=== PATIENT | male | born 1945 | race Caucasian/White ===

== ENCOUNTER 2023-05-23 07:20 | Inpatient (IN) | payer OTHER, MEDICARE, SELFPAY ==
[2023-05-23] VITALS (10 sets, daily range): BP systolic 113–157; BP diastolic 57–102; PULSE 76–99; RESP 16–22; TEMP 36.3–38.4; O2SAT 94–99; BMI 27.5; BMI 25.9
--- NOTE | 2023-05-23 07:43 | EKG12_ITS ---
Test Reason : LEG PAIN Blood Pressure : / mmHG Vent. Rate : 098 BPM Atrial Rate : 098 BPM P-R Int : 190 ms QRS Dur : 122 ms QT Int : 356 ms P-R-T Axes : 047 -54 099 degrees QTc Int : 454 ms Normal sinus rhythm Left anterior fascicular block Left ventricular hypertrophy with QRS widening and repolarization abnormality Abnormal ECG Confirmed by GIUSEPPE MORGAN, MYRANDA ([id number]), online content editor DORCAS SALINAS ([id number]) on 05/24/2023 9:56:05 AM Referred By: JOHN Confirmed By:MYRANDA CHIN MD
[2023-05-23] MEDS: 0.9% Normal Saline 1,000 ML 150 ML IV (08:11)
[2023-05-23 08:25] LABS: Absolute Neutrophil Count 13.2 X10^3/uL (2.0-7.7); Basophil# 0.03 X10^3/uL; Basophil% 0.2 % (0-1); Hematocrit 37.5 % (40-54); Hemoglobin 13.2 g/dL (13.0-16.5); Mean Corp Hgb Conc 35.2 g/dL (32-36); Mean Corpuscular Hgb 29.3 pg (27.0-32.0); Mean Corpuscular Volume 83.3 fL (80-94); Mean Platelet Vol. 11.1 fl (6.2-12.0); Monocyte% 4.7 % (0-10); NRBC Flagged by Analyzer 0 % (0-5); Neutrophil # 13.22 X10^3/uL (2.7-7.7); Neutrophil % 88.7 % (47-70); Platelet Count 145 K/mm3 (150-450); RBC Distribution Width CV 13.5 % (11.6-14.6); RBC Distribution Width SD 40.9 fl (35.1-43.9); White Blood Count 14.9 K/mm3 (4.4-11.0)
[2023-05-23 08:31] LABS: International Normalized Ratio 1.4; Prothrombin Time (Protime)PT. 16.9 SECONDS (11.7-14.9)
[2023-05-23 08:32] LABS: Partial Thromboplast Time 37.9 Seconds (24.1-36.2)
[2023-05-23 08:39] LABS: ALB/GLOB Ratio 0.9 RATIO (0.9-2.4); AST(SGOT) 21 U/L (15-37); Alanine Aminotransfer ALT/SGPT 14 U/L (16-61); Albumin, Serum 3.2 g/dL (3.2-5.0); Alkaline Phosphatase 83 U/L (45-117); Anion Gap 8 (5-15); BUN 15 mg/dL (7-18); BUN/Creat Ratio 13.5 RATIO (10-20); Calcium,Total 9.3 mg/dL (8.5-10.1); Chloride 100 mmol/L (98-107); Creatinine, Serum 1.11 mg/dL (0.70-1.30); EST Glomerular Filtration Rate 68 mL/min (>60); Est Glom Filt Rate - Afr Amer 83 mL/min (>60); Estimated Creatinine Clearance 73.19 ml/min; Globulin 3.7 g/dL (2.2-4.2); Glucose 114 mg/dL (74-106); Potassium 3.2 mmol/L (3.5-5.1); Protein, Total 6.9 g/dL (6.4-8.2); Sodium Level 135 mmol/L (136-145)
[2023-05-23 08:45] LABS: Lactic Acid 1.4 mmol/L (0.4-1.9)
--- NOTE | 2023-05-23 09:27 | ED.RN ---
Patient cleaned up from large incontinent episode of stool and urine. Adult diaper saturated and old urine and dried stool cleaned up. Patient states he maintains his own care in regard to adult diapers and incontinence. Patient had large, liquid incontinent stool while being changed. Patient cleaned and new adult diaper applied, purewick applied. Urine collected and sent to lab
[2023-05-23 09:28] LABS: Mucous, Urine 0 SEEN /hpf (<or=2+); Squamous Epithelial Cells - UA 0 SEEN /hpf (0-5)
--- NOTE | 2023-05-23 09:36 | EDS_ITS ---
HPI History of Present Illness Chief Complaint: Weakness Detail of Chief Complaint: Generalized weakness, cannot stand and walk Informant: patient Onset/Context/Timing Onset: - (Unknown) Context: - (Unknown since patient is not a good informant) Timing: Continuous (Presumed) Quality: Patient has cellulitis of the left foot, toes and leg. Location: Lower extremity Current Severity: Moderate Maximum Severity: Moderate Worsened by: Suspect due to tinea pedis Relieved by: Nothing Associated Symptoms Associated Symptoms: Patient is a 77-year-old male who is not a good informant. Narrative Narrative: Patient is a 77-year-old male who is a poor informant. He was unaware that he was sent in because of concern for infection of his left lower extremity. He informed that he was sent in because he is weak and he cannot stand and walk. He does not know when his leg first was read. He was unaware that the leg is swollen as well. He denies fever or chills. He denies headache. Denies visual, ocular auditory symptoms. He denies shortness of breath or difficulty breathing. He denies abdominal pain, vomiting or diarrhea. He illogic symptoms. As noted he is not a good informant so uncertain how reliable he is Prior similar symptoms: No Recent Illness/Hospitalization: No PFSH PFS Medical History Diabetes mellitus HTN (hypertension) Home Medications cholecalciferol (vitamin D3) 25 mcg (1,000 unit) tablet 25 mcg PO DAILY SUPPLEMENT 05/23/23 [History Last Taken 05/23/23] lisinopril 40 mg tablet 20 mg PO DAILY BLOOD PRESSURE 05/23/23 [History Last Taken 05/23/23] metformin 500 mg tablet 1,000 mg PO DAILY DIABETES 05/23/23 [History Last Taken 05/23/23] psyllium husk 0.52 gram capsule (Daily Fiber) 0.52 g PO DAILY PRN CONSTIPATION 05/23/23 [History Last Taken Unknown] riboflavin (vitamin B2) 100 mg tablet (Vitamin B-2) 100 mg PO DAILY SUPPLEMENT 05/23/23 [History Last Taken 05/23/23] Allergy/AdvReac Type Severity Reaction Status Date / Time No Known Allergies Allergy Verified 05/23/23 07:23 Surgical History no surgical history Social History Smoking Status: Former smoker ROS ROS ED Review of Systems ROS Unobtainable: due to mental status Constitutional Constitutional ED: Denies chills, fever(s), sweats or weight loss Eyes Eyes: Denies blurry vision, change in vision or diplopia ENT ENT ED: Denies ear pain, rhinorrhea or sore throat Cardiovascular Cardiovascular: Denies chest pain or palpitations Respiratory/Chest Respiratory/Chest: Denies cough, dyspnea or dyspnea on exertion Gastrointestinal Gastrointestinal: Denies abdominal pain, diarrhea or vomiting Genitourinary Genitourinary ED: Denies dysuria, hematuria or urinary frequency Musculoskeletal Musculoskeletal: Denies back pain or neck pain Integumentary Denies rash Neurologic Neurologic: Reports weakness Hematologic/Lymphatic Hematologic/Lymphatic: Reports systems reviewed and no addt'l complaints, except as documented EXAM Physical Exam Const Vital Signs: 05/23/23 07:21 05/23/23 07:21 05/23/23 07:55 Temperature 97.3 F L Temperature Source Temporal Pulse Rate 88 Respiratory Rate 18 Blood Pressure 149/63 H Blood Pressure Mean 91 Pulse Ox 94 Oxygen Delivery Method Room Air 05/23/23 09:25 05/23/23 10:54 05/23/23 11:22 Temperature 98 F Temperature Source Oral Pulse Rate 88 96 76 Respiratory Rate 18 22 H 16 Blood Pressure 113/102 H 147/57 H 156/66 H Blood Pressure Mean 105 87 96 Pulse Ox 97 99 Oxygen Delivery Method Room Air Room Air Room Air Positive well nourished and well developed General Appearance ED: well developed and NAD; Negative for cyanotic or diap horetic HEENT Reports dry mucous membranes HEENT Narrative: It is atraumatic normocephalic. Ears are normal. TMs are partially visualized and normal. Nares patent. Posterior pharynx out erythema or exudate Mouth ED: Yes dry mucous membranes Mouth: dry mucous membranes Eyes PERRL and EOMs intact bilaterally General Eye ED: Negative for pale conjunctiva or scleral icterus Neck no lymphadenopathy, supple and no JVD Chest Wall inspection of chest normal and palpation of chest normal Resp normal respiratory effort and clear to auscultation bilaterally Cardio regular rate, regular rhythm, S1 normal heart sound, S2 normal heart sound and no murmurs GI normal to inspection, nondistended, normoactive bowel sounds, non-tender, non- distended and no masses; Negative for hepatosplenomegaly Back/Spine no CVA tenderness Extremity Negative for normal to inspection Extremity Narrative: Patient has edema of both the right and left lower extremity. Left is worse. Patient has evidence of cellulitis involving the toes, foot and leg on the left side. He has tenderness in the popliteal fossa. There is no palpable lymph nodes. There is no lymphangitis. Patient does have evidence of tinea pedis left foot. Suspect this is the nidus for his infection. Neuro No oriented x3, CN's II-XII intact bilaterally and no sensory deficits noted Neuro Narrative: Patient is awake but not alert. Sensorium / Orientation: Negative for alert Psych mental status grossly normal Skin Skin Narrative: Cellulitis left lower extremity. MDM MDM MDM Narrative Medical decision making narrative: Patient with altered mental status concerned he has encephalopathy due to infectious cause. Sepsis work-up was initiated. He was treated with Unasyn and vancomycin. History & Record Review Additional record(s) reviewed:: No prior records Lab Data Attestation: I reviewed the patient's lab results. Lab results narrative: White count is elevated with shift. The no bandemia. PT and PTT are slightly elevated. Electrolyte panel is remarkable for potassium 3.2. CO2 anion gap is normal. Glucose is slight elevated 114. Liver enzymes are unremarkable. Total bili is slight elevated 1.4. Labs: Laboratory Results - last 24 hr 05/23/23 05/23/23 07:05 09:17 WBC 14.9 H RBC 4.50 L Hgb 13.2 Hct 37.5 L MCV 83.3 MCH 29.3 MCHC 35.2 RDW Std Deviation 40.9 RDW Coeff of Domo 13.5 Plt Count 145 L MPV 11.1 Immature Gran % (Auto) 0.400 Neut % (Auto) 88.7 H Lymph % (Auto) 6.0 L [place] % (Auto) 4.7 Eos % (Auto) 0.0 Baso % (Auto) 0.2 Absolute Neuts (auto) 13.2 H Absolute Lymphs (auto) 0.90 Nucleated RBC % 0 PT 16.9 H INR 1.4 APTT 37.9 H Sodium 135 L Potassium 3.2 L Chloride 100 Carbon Dioxide 27.0 Anion Gap 8 BUN 15 Creatinine 1.11 Estim Creat Clear Calc 73.19 Est GFR (MDRD) Af Amer 83 Est GFR (MDRD) Non-Af 68 BUN/Creatinine Ratio 13.5 Glucose 114 H Lactic Acid 1.4 Calcium 9.3 Total Bilirubin 1.40 H AST 21 ALT 14 L Alkaline Phosphatase 83 Total Protein 6.9 Albumin 3.2 Globulin 3.7 Albumin/Globulin Ratio 0.9 Urine Color Yellow Urine Clarity Sl. Cloudy Urine pH 8.0 Ur Specific [place] 1.015 Urine Protein 100 H Urine Glucose (UA) Normal Urine Ketones 150 A* Urine Occult Blood 150 H Urine Nitrite Positive H Urine Bilirubin Negative Urine Urobilinogen Normal Ur Leukocyte Esterase 500 H Urine RBC 10-25 SEEN Urine WBC 25-50 SEEN Ur Squamous Epith Cells 0 SEEN Urine Bacteria 2+ Urine Mucus 0 SEEN Rhythm Strip Rhythm Strip: Sinus Rhythm Rate: 96 Ectopy: None EKG Initial EKG: Attestation: I personally reviewed and interpreted this EKG as follows: Interpretation: Sinus Rhythm (Rate is 98. PA interval is 198 ms. QRS duration is prolonged at 122 ms and there is evidence of a left intrafascicular block. QT duration is 356 ms. [place] is normal. There is evidence of LVH by voltage criteria with repolarization changes.) Discharge Plan Dx/Rx/DC Orders Clinical Impression: Cellulitis of left lower extremity, Disoriented to time, Encephalopathy due to infection Disposition Disposition: Acute Care Hospital [facility] Discharge Date/Time: 05/23/23 11:25
[2023-05-23 09:37] LABS: Color, Urine Yellow (Yellow); Glucose, Dipstick Normal (Normal); Leukocyte Esterase-Dipstick 500 /ul (Negative); Nitrite-Dipstick Positive (Negative); Occult Blood-Urine 150 /ul (Negative); Protein-Dipstick 100 mg/dl (Negative); Specific Gravity, Urine 1.015 (1.002-1.030); Urine Bilirubin Dipstick Negative (Negative); Urine Clarity Sl. Cloudy (Clear); Urine Urobilinogen Normal (Normal)
[2023-05-23 09:38] LABS: Ketone-Dipstick 150 mg/dl (Negative)
[2023-05-23 09:47] LABS: Bacteria 2+ /hpf (None Seen); Red Blood Cells-Urine 10-25 SEEN /hpf (0-5); White Blood Cells 25-50 SEEN /hpf (0-5)
--- NOTE | 2023-05-23 10:55 | ED.RN ---
Patient sleeping, aware of admission. Awaiting room assignment. Lights dimmed for comfort.
--- NOTE | 2023-05-23 11:00 | NURSING ---
ER notified Dr. Stone on unit, states will admit to [facility]. ut to send patient.
--- NOTE | 2023-05-23 12:11 | NURSING ---
pt states that he lives in [place] with his son- Toy. pt states that he was up here visiting friends and the friend called the squad because he couldn't get up out of the chair. pt states he does NOT want anyone notified that he is here. Pt states he seeks treatment at the [facility] in [place]
--- NOTE | 2023-05-23 12:54 | PCM.HP.STD ---
HPI - General General Date of Admission: 05/23/23 Date of Service: 05/23/23 Chief Complaint: weakness. HPI Narrative PAULINO VITALE, is a 77 M who presents. Pt is here from [place], [place] for a leather show. He has been staying at friends and has been progressively getting weaker, requiring assistance getting out of bed. They were concerned and sent the patient to the ED. In the ED, he was noted to have LLE cellulitis. He received vancomycin and Unasyn. He denies h/o cellulitis in the past. Given his cellulitis and debility the hospitalist service was contacted for admission. [facility] Medical History Diabetes mellitus HTN (hypertension) Home Medications cholecalciferol (vitamin D3) 25 mcg (1,000 unit) tablet 25 mcg PO DAILY SUPPLEMENT 05/23/23 [History Last Taken 05/23/23] lisinopril 40 mg tablet 20 mg PO DAILY BLOOD PRESSURE 05/23/23 [History Last Taken 05/23/23] metformin 500 mg tablet 1,000 mg PO DAILY DIABETES 05/23/23 [History Last Taken 05/23/23] psyllium husk 0.52 gram capsule (Daily Fiber) 0.52 g PO DAILY PRN CONSTIPATION 05/23/23 [History Last Taken Unknown] riboflavin (vitamin B2) 100 mg tablet (Vitamin B-2) 100 mg PO DAILY SUPPLEMENT 05/23/23 [History Last Taken 05/23/23] Allergy/AdvReac Type Severity Reaction Status Date / Time No Known Allergies Allergy Verified 05/23/23 07:23 Family History no significant family his no significant family history Surgical History no surgical history Social History Smoking Status: Former smoker Vital Signs Vital Signs Vital Signs: 05/23/23 07:21 05/23/23 07:21 05/23/23 07:55 Temperature 36.3 C L Temperature Source Temporal Pulse Rate 88 Respiratory Rate 18 Blood Pressure 149/63 H Blood Pressure Mean 91 Pulse Ox 94 Oxygen Delivery Method Room Air 05/23/23 09:25 05/23/23 10:54 05/23/23 11:22 Temperature 36.6 C Temperature Source Oral Pulse Rate 88 96 76 Respiratory Rate 18 22 H 16 Blood Pressure 113/102 H 147/57 H 156/66 H Blood Pressure Mean 105 87 96 Pulse Ox 97 99 Oxygen Delivery Method Room Air Room Air Room Air 05/23/23 12:09 Temperature 37.6 C H Temperature Source Oral Pulse Rate 92 Respiratory Rate 18 Blood Pressure 155/71 H Blood Pressure Mean 99 Pulse Ox 96 Oxygen Delivery Method Room Air Weight Weight: 101.605 kg Body Mass Index (BMI) 25.9 Physical Exam Const alert and no apparent distress HEENT normocephalic and head/scalp atraumatic Resp normal respiratory effort, no retractions, no use of accessory muscles and clear to auscultation bilaterally Cardio regular rate, regular rhythm, S1 normal heart sound and S2 normal heart sound GI normal to inspection, nondistended, normoactive bowel sounds, soft to palpation, non-tender and non-distended Extremity Extremity Narrative: edema bilateral LE. tinea pedis. Skin Skin Narrative: erythema of left foot extending proximally up leg. Psych affect normal Results Lab / Micro Data 05/23/23 07:05 05/23/23 07:05 Labs: Laboratory Results - last 24 hr 05/23/23 07:05: WBC 14.9 H, RBC 4.50 L, Hgb 13.2, Hct 37.5 L, MCV 83.3, MCH 29.3, MCHC 35.2, RDW Std Deviation 40.9, RDW Coeff of Domo 13.5, Plt Count 145 L, MPV 11.1, Immature Gran % (Auto) 0.400, Neut % (Auto) 88.7 H, Lymph % (Auto) 6.0 L, [place] % (Auto) 4.7, Eos % (Auto) 0.0, Baso % (Auto) 0.2, Absolute Neuts (auto) 13.2 H, Absolute Lymphs (auto) 0.90, Nucleated RBC % 0, PT 16.9 H, INR 1.4, APTT 37.9 H, Sodium 135 L, Potassium 3.2 L, Chloride 100, Carbon Dioxide 27.0, Anion Gap 8, BUN 15, Creatinine 1.11, Estim Creat Clear Calc 73.19, Est GFR (MDRD) Af Amer 83, Est GFR (MDRD) Non-Af 68, BUN/Creatinine Ratio 13.5, Glucose 114 H, Lactic Acid 1.4, Calcium 9.3, Total Bilirubin 1.40 H, AST 21, ALT 14 L, Alkaline Phosphatase 83, Total Protein 6.9, Albumin 3.2, Globulin 3.7, Albumin/Globulin Ratio 0.9 05/23/23 09:17: Urine Color Yellow, Urine Clarity Sl. Cloudy, Urine pH 8.0, Ur Specific [place] 1.015, Urine Protein 100 H, Urine Glucose (UA) Normal, Urine Ketones 150 A*, Urine Occult Blood 150 H, Urine Nitrite Positive H, Urine Bilirubin Negative, Urine Urobilinogen Normal, Ur Leukocyte Esterase 500 H, Urine RBC 10-25 SEEN, Urine WBC 25-50 SEEN, Ur Squamous Epith Cells 0 SEEN, Urine Bacteria 2+, Urine Mucus 0 SEEN Rhythm Strip Rhythm Strip: Sinus Rhythm Rate: 96 Ectopy: None Assessment & Plan Assessment/Plan (1) Cellulitis of left lower extremity: PLAN: likely 2/2 tinea pedis. received vanc and Unasyn in ED continue vancomycin (2) Debility: PLAN: PT OT eval and treat (3) Tinea pedis: QUALIFIERS: Laterality: bilateral Qualified Code(s): B35.3 - Tinea pedis PLAN: clotrimazole topical PLAN: Plan chronic conditions: DM2: continue metformin. add SSI. check A1c HTN: continue lisinopril VTE prophylaxis: SQ enoxaparin. Charges/Coding Visit Charges Inpatient E&M: 52603 Init Hosp L3
--- NOTE | 2023-05-23 13:25 | PCM.RX.CS ---
Consult Antibiotic Management Pharmacy has been consulted to manage selected antiobiotic: Vancomycin Type of Intervention Type of Consult: New start Suspected Infection Suspected Infection: Skin/Soft tissue Prior Doses of Antibiotics Prior Doses of Antibiotics Received/Current Regimen: Currently receiving 2000mg iv x 1 as loading dose. Labs Labs: Sodium 135 mmol/L (136-145) L 05/23/23 07:05 Potassium 3.2 mmol/L (3.5-5.1) L 05/23/23 07:05 Chloride 100 mmol/L (98-107) 05/23/23 07:05 Carbon Dioxide 27.0 mmol/L (21.0-32.0) 05/23/23 07:05 Anion Gap 8 (5-15) 05/23/23 07:05 BUN 15 mg/dL (7-18) 05/23/23 07:05 Creatinine 1.11 mg/dL (0.70-1.30) 05/23/23 07:05 Est GFR (MDRD) Af Amer 83 mL/min (>60) 05/23/23 07:05 Est GFR (MDRD) Non-Af 68 mL/min (>60) 05/23/23 07:05 BUN/Creatinine Ratio 13.5 RATIO (10-20) 05/23/23 07:05 Glucose 114 mg/dL (74-106) H 05/23/23 07:05 Dosing Weight Weight used for dosin.6 kg Estimated Creatinine Clearance Estimated Creatinine Clearance: 73 ml/min Goal Trough Goal Trough: 10-15 mcg/mL Pharmacy Plan for Drug Dosing Pharmacy Plan for Drug Dosing: Will begin 1000mg iv q12h starting 12hrs post 2000mg dose. Trough level ordered for before 4th dose per protocol. Pharmacy Service will continue to monitor and adjust dosing as required. Follow-Up Labs Follow-Up Labs: Trough: Vancomycin (8.4.23 @2230 before 2300 dose)
[2023-05-23] MEDS: Acetaminophen 500 MG Tablet 1000 MG PO ×2 (13:43→23:56)
[2023-05-23 18:51] LABS: Bedside Glucose 103 mg/dL (74-106)
[2023-05-23] MEDS: Vancomycin IV 1,000 MG/200 ML BAG 200 MG IV (23:10)
[2023-05-23] MEDS: Menthol/Lanolin/Calamine/Znox 113 GM Tube 1 APPLIC TOPICAL (23:19)
[2023-05-23] MEDS: Clotrimazole 1 APPLIC Tube TOPICAL (23:57)
[2023-05-24] VITALS (7 sets, daily range): BP systolic 127–160; BP diastolic 64–78; PULSE 63–99; RESP 16–18; TEMP 36.6–38.3; O2SAT 96–99
[2023-05-24] MEDS: Acetaminophen 500 MG Tablet 1000 MG PO ×3 (05:40→22:20)
[2023-05-24 06:15] LABS: Bedside Glucose 102 mg/dL (74-106)
[2023-05-24 06:18] LABS: Absolute Lymphocyte Count 0.68 X10^3/uL (0.83-4.51); Absolute Neutrophil Count 11.8 X10^3/uL (2.0-7.7); Basophil# 0.02 X10^3/uL; Basophil% 0.2 % (0-1); Eosinophil# 0.01 X10^3/uL; Eosinophils% 0.1 % (0-5); Hematocrit 37.9 % (40-54); Hemoglobin 12.8 g/dL (13.0-16.5); Lymphocyte # 0.68 X10^3/ul (0.83-4.51); Lymphocyte % 5.1 % (19-41); Mean Corp Hgb Conc 33.8 g/dL (32-36); Mean Corpuscular Hgb 28.4 pg (27.0-32.0); Mean Corpuscular Volume 84.2 fL (80-94); Monocyte# 0.59 X10^3/uL; Monocyte% 4.4 % (0-10); NRBC Flagged by Analyzer 0 % (0-5); Neutrophil # 11.81 X10^3/uL (2.7-7.7); Neutrophil % 89.1 % (47-70); Platelet Count 118 K/mm3 (150-450); RBC Distribution Width CV 13.2 % (11.6-14.6); RBC Distribution Width SD 40.6 fl (35.1-43.9); White Blood Count 13.3 K/mm3 (4.4-11.0)
[2023-05-24 07:23] LABS: ALB/GLOB Ratio 0.7 RATIO (0.9-2.4); AST(SGOT) 16 U/L (15-37); Alanine Aminotransfer ALT/SGPT 15 U/L (16-61); Albumin, Serum 2.5 g/dL (3.2-5.0); Alkaline Phosphatase 81 U/L (45-117); Anion Gap 5 (5-15); BUN 14 mg/dL (7-18); BUN/Creat Ratio 16.4 RATIO (10-20); Calcium,Total 8.8 mg/dL (8.5-10.1); Chloride 103 mmol/L (98-107); Creatinine, Serum 0.85 mg/dL (0.70-1.30); EST Glomerular Filtration Rate 93 mL/min (>60); Est Glom Filt Rate - Afr Amer 112 mL/min (>60); Estimated Creatinine Clearance 95.58 ml/min; Globulin 3.7 g/dL (2.2-4.2); Glucose 103 mg/dL (74-106); Potassium 3.4 mmol/L (3.5-5.1); Protein, Total 6.2 g/dL (6.4-8.2); Sodium Level 135 mmol/L (136-145); Thyroid Stim Hormone (TSH) 0.83 uIU/mL (0.358-3.74)
--- NOTE | 2023-05-24 07:38 | PN.HOSP_ITS ---
Reason for Visit Reason for Visit: Diagnoses Tinea pedis (05/23/23) Cellulitis of left lower limb (05/23/23) Other malaise (05/23/23) Subjective Subjective Left leg feeling better. Objective Data Objective Data Vital Signs: Vital Signs Temp Pulse Resp BP Pulse Ox O2 Del Method 37.5 C H 80 18 148/73 H 97 Room Air 05/24/23 05:34 05/24/23 05:34 05/24/23 05:34 05/24/23 05:34 05/24/23 05:34 05/24/23 05:34 Oxygen Delivery Method Room Air Weight: 101.605 kg Body Mass Index (BMI) 25.9 Intake & Output: Intake and Output for Last 24 Hours 05/22/23 05/23/23 05/24/23 23:59 23:59 23:59 Intake Total 1344.75 / 1344.75 200 / 200 Output Total 600 / 600 450 / 450 Balance 744.75 / 744.75 -250 / -250 Lab / Micro Data 05/24/23 05:25 05/24/23 05:25 Labs: Laboratory Results - last 24 hr 05/23/23 07:05: WBC 14.9 H, RBC 4.50 L, Hgb 13.2, Hct 37.5 L, MCV 83.3, MCH 29.3, MCHC 35.2, RDW Std Deviation 40.9, RDW Coeff of Domo 13.5, Plt Count 145 L, MPV 11.1, Immature Gran % (Auto) 0.400, Neut % (Auto) 88.7 H, Lymph % (Auto) 6.0 L, [place] % (Auto) 4.7, Eos % (Auto) 0.0, Baso % (Auto) 0.2, Absolute Neuts (auto) 13.2 H, Absolute Lymphs (auto) 0.90, Nucleated RBC % 0, PT 16.9 H, INR 1.4, APTT 37.9 H, Sodium 135 L, Potassium 3.2 L, Chloride 100, Carbon Dioxide 27.0, Anion Gap 8, BUN 15, Creatinine 1.11, Estim Creat Clear Calc 73.19, Est GFR (MDRD) Af Amer 83, Est GFR (MDRD) Non-Af 68, BUN/Creatinine Ratio 13.5, Glucose 114 H, Lactic Acid 1.4, Calcium 9.3, Total Bilirubin 1.40 H, AST 21, ALT 14 L, Alkaline Phosphatase 83, Total Protein 6.9, Albumin 3.2, Globulin 3.7, Albumin/Globulin Ratio 0.9 05/23/23 09:17: Urine Color Yellow, Urine Clarity Sl. Cloudy, Urine pH 8.0, Ur Specific [place] 1.015, Urine Protein 100 H, Urine Glucose (UA) Normal, Urine Ketones 150 A*, Urine Occult Blood 150 H, Urine Nitrite Positive H, Urine Bilirubin Negative, Urine Urobilinogen Normal, Ur Leukocyte Esterase 500 H, Urine RBC 10-25 SEEN, Urine WBC 25-50 SEEN, Ur Squamous Epith Cells 0 SEEN, Urine Bacteria 2+, Urine Mucus 0 SEEN 05/23/23 16:11: POC Glucose 103 05/23/23 23:09: POC Glucose 102 05/24/23 05:25: WBC 13.3 H, RBC 4.50 L, Hgb 12.8 L, Hct 37.9 L, MCV 84.2, MCH 2 8.4, MCHC 33.8, RDW Std Deviation 40.6, RDW Coeff of Domo 13.2, Plt Count 118 L, MPV 11.0, Immature Gran % (Auto) 1.100 H, Neut % (Auto) 89.1 H, Lymph % (Auto) 5.1 L, [place] % (Auto) 4.4, Eos % (Auto) 0.1, Baso % (Auto) 0.2, Absolute Neuts (auto) 11.8 H, Absolute Lymphs (auto) 0.68 L, Nucleated RBC % 0, Sodium 135 L, Potassium 3.4 L, Chloride 103, Carbon Dioxide 27.0, Anion Gap 5, BUN 14, Creatinine 0.85, Estim Creat Clear Calc 95.58, Est GFR (MDRD) Af Amer 112, Est GFR (MDRD) Non-Af 93, BUN/Creatinine Ratio 16.4, Glucose 103, Calcium 8.8, Total Bilirubin 1.10 H, AST 16, ALT 15 L, Alkaline Phosphatase 81, Total Protein 6.2 L , Albumin 2.5 L, Globulin 3.7, Albumin/Globulin Ratio 0.7 L, TSH 0.83 Rhythm Strip Rhythm Strip: Sinus Rhythm Rate: 96 Ectopy: None Physical Exam Const alert and no apparent distress HEENT head/scalp atraumatic Resp normal respiratory effort, no retractions, no use of accessory muscles and clear to auscultation bilaterally Cardio regular rate, regular rhythm, S1 normal heart sound and S2 normal heart sound Extremity Extremity Narrative: still w erythema on LLE, but less intense today. Assessment & Plan Assessment/Plan (1) Cellulitis of left lower extremity: PLAN: improving likely 2/2 tinea pedis. received vanc and Unasyn in ED continue vancomycin (2) Debility: PLAN: PT OT eval and treat (3) Tinea pedis: QUALIFIERS: Laterality: bilateral Qualified Code(s): B35.3 - Tinea pedis PLAN: clotrimazole topical PLAN: Plan chronic conditions: * DM2: controlled. continue metformin. add SSI. A1c 6.1 * HTN: continue lisinopril VTE prophylaxis: SQ enoxaparin. Charges/Coding Visit Charges Inpatient E&M: 29920 Subs Hosp L2
[2023-05-24 08:42] LABS: Hemoglobin A1c 6.1 % (3.8-5.6)
[2023-05-24] MEDS: Cholecalciferol (VIT D3) 25 MCG TABLET (1,000 UNITS) PO (11:07)
[2023-05-24] MEDS: Lisinopril 20 MG Tablet PO (11:07)
[2023-05-24] MEDS: Enoxaparin 40 MG/0.4 ML Syringe SC (11:07)
[2023-05-24] MEDS: metFORMIN HCl 1,000 MG Tablet 1000 MG PO (11:07)
[2023-05-24] MEDS: Clotrimazole 1 APPLIC Tube TOPICAL (11:08)
[2023-05-24] MEDS: Menthol/Lanolin/Calamine/Znox 113 GM Tube 1 APPLIC TOPICAL ×2 (11:09→22:21)
[2023-05-24] MEDS: Vancomycin IV 1,000 MG/200 ML BAG 200 MG IV ×2 (11:09→23:08)
--- NOTE | 2023-05-24 11:52 | CASEMGMT ---
TERRENCE STEVE Assessment: Face to Face with pt for initial transition planning/care coordination assessment. RN EVI introduced self and role at [facility], pt voices understanding and consents to assessment. Pt is A/O x2, pt thought the year was 1973. Care providers, pharmacy, and demographics verified/updated. Admitting Dx: cellulitis LLE, disorientation PCP:CHERYL in [facility] Specialists:Pt denies Preferred Pharmacy: [facility] Retail Insurance: [place], [facility] Prescription Benefit: yes through the [place] LNOK: Toby Thomason, son- Pt declines for TERRENCE STEVE to call him and will not provide his phone number. He states that he will tell him all the information once he is home. Living Arrangements: Pt lives with son in a single story home with 1 step to enter. Pt reports he is I in ADL's and denies concerns at home. Transportation: Pt drives self and denies concerns with transportation. Pt reports he drove himself to the [employer] in [facility] and plans to drive himself back home. DME/HHC/SNF: Pt has a built in seat in the shower and a cane. Pt states he has a BGM but does not use. Pt denies hx of HHC or SNF stays. Pt states no concerns with going home at time of dc. Discussed that therapy will evaluate him. Pt states he can drive home regardless. Pt states no further concerns/needs. CM to follow. Advised pt to ask CM if any further question/concerns/needs arise, voices understanding. Pt Goal: Home Plan: TBD, pending therapy
[2023-05-24 12:08] LABS: Bedside Glucose 106 mg/dL (74-106)
[2023-05-24 12:15] LABS: Bedside Glucose 103 mg/dL (74-106)
[2023-05-24] MEDS: Potassium Chloride Oral Tablet 20 MEQ 40 MEQ PO (14:02)
--- NOTE | 2023-05-24 15:32 | CASEMGMT ---
Addendum entered by Arline Turpin 05/24/23 15:42: Did discuss with Charlotte guerrero pt is requiring. Addendum entered by Arline Turpin 05/24/23 15:39: Charlotte [facility] called back and she states pt is able to go to their house upon dc. She states to call them at dc and they will have someone come pick him up. Pt aware of this as well. Original Note: TERRENCE STEVE into pt room, pt states he plans to stay with Jillian and Charlotte Medrano for one day then driving back home. He did give this RN CM the phone number for the [facility]. [phone]. He states this RN CM may call them. They do not drive but he states they will find someone to pick him up. Asked pt if he could stay with them until he felt stronger. Pt states he only needs to have strength in his right foot to get home. Pt states he does not want any therapy once home. He is aware to follow up with his PCP should he change his mind. TC to the [facility], left voicemail requesting returned call to confirm pt plan.
[2023-05-24 16:28] LABS: Bedside Glucose 145 mg/dL (74-106)
[2023-05-24] MEDS: 0.9% Saline Lock 10 ML Syringe IV (22:24)
[2023-05-24 22:38] LABS: Vancomycin, Trough Level 10.2 ug/mL (5.0-15.0)
--- NOTE | 2023-05-24 23:00 | PCM.RX.CS ---
Consult Antibiotic Management Pharmacy has been consulted to manage selected antiobiotic: Vancomycin Type of Intervention Type of Consult: Follow-up Suspected Infection Suspected Infection: Skin/Soft tissue Labs Labs: Sodium 135 mmol/L (136-145) L 05/24/23 05:25 Potassium 3.4 mmol/L (3.5-5.1) L 05/24/23 05:25 Chloride 103 mmol/L (98-107) 05/24/23 05:25 Carbon Dioxide 27.0 mmol/L (21.0-32.0) 05/24/23 05:25 Anion Gap 5 (5-15) 05/24/23 05:25 BUN 14 mg/dL (7-18) 05/24/23 05:25 Creatinine 0.85 mg/dL (0.70-1.30) 05/24/23 05:25 Est GFR (MDRD) Af Amer 112 mL/min (>60) 05/24/23 05:25 Est GFR (MDRD) Non-Af 93 mL/min (>60) 05/24/23 05:25 BUN/Creatinine Ratio 16.4 RATIO (10-20) 05/24/23 05:25 Glucose 103 mg/dL (74-106) 05/24/23 05:25 Vancomycin Trough 10.2 ug/mL (5.0-15.0) 05/24/23 22:13 Dosing Weight Weight used for dosin.6 kg Estimated Creatinine Clearance Estimated Creatinine Clearance: 96 Goal Trough Goal Trough: 10-15 mcg/mL Pharmacy Plan for Drug Dosing Pharmacy Plan for Drug Dosing: Vancomycin trough level of 10.2 was within the target range of 10-15. Will continue dosing at 1000mg q12h, and re-draw a trough in 2 days. Pharmacy Service will continue to monitor and adjust dosing as required. Follow-Up Labs Follow-Up Labs: Trough: Vancomycin Date/Time Labs Ordered Labs to be done on [date and time ordered]: 05/26/23 @4262
[2023-05-24 23:38] LABS: Bedside Glucose 139 mg/dL (74-106)
[2023-05-25 06:00] VITALS: BP 144/72; PULSE 84; RESP 18; TEMP 37.2; O2SAT 97
[2023-05-25] MEDS: Acetaminophen 500 MG Tablet 1000 MG PO ×3 (06:06→21:27)
[2023-05-25 06:12] LABS: Absolute Lymphocyte Count 0.77 X10^3/uL (0.83-4.51); Absolute Neutrophil Count 13.9 X10^3/uL (2.0-7.7); Basophil# 0.06 X10^3/uL; Basophil% 0.4 % (0-1); Eosinophil# 0.02 X10^3/uL; Eosinophils% 0.1 % (0-5); Hematocrit 40.2 % (40-54); Hemoglobin 13.8 g/dL (13.0-16.5); Lymphocyte # 0.77 X10^3/ul (0.83-4.51); Lymphocyte % 4.9 % (19-41); Mean Corp Hgb Conc 34.3 g/dL (32-36); Mean Corpuscular Hgb 28.5 pg (27.0-32.0); Mean Corpuscular Volume 82.9 fL (80-94); Mean Platelet Vol. 11.4 fl (6.2-12.0); Monocyte% 5.1 % (0-10); NRBC Flagged by Analyzer 0 % (0-5); Neutrophil # 13.87 X10^3/uL (2.7-7.7); Neutrophil % 88.2 % (47-70); Platelet Count 163 K/mm3 (150-450); RBC Distribution Width CV 13.1 % (11.6-14.6); RBC Distribution Width SD 39.6 fl (35.1-43.9); Red Blood Count 4.85 M/mm3 (4.6-6.2); White Blood Count 15.7 K/mm3 (4.4-11.0)
[2023-05-25 06:33] LABS: Bedside Glucose 121 mg/dL (74-106)
[2023-05-25 06:44] LABS: Anion Gap 5 (5-15); BUN 11 mg/dL (7-18); BUN/Creat Ratio 14.6 RATIO (10-20); Calcium,Total 9.2 mg/dL (8.5-10.1); Chloride 101 mmol/L (98-107); Creatinine, Serum 0.75 mg/dL (0.70-1.30); EST Glomerular Filtration Rate 107 mL/min (>60); Est Glom Filt Rate - Afr Amer 129 mL/min (>60); Estimated Creatinine Clearance 81.24 ml/min; Glucose 132 mg/dL (74-106); Potassium 3.2 mmol/L (3.5-5.1); Sodium Level 135 mmol/L (136-145)
--- NOTE | 2023-05-25 07:23 | PN.HOSP_ITS ---
Reason for Visit Reason for Visit: Diagnoses Tinea pedis (05/23/23) Cellulitis of left lower limb (05/23/23) Other malaise (05/23/23) Subjective Subjective Could not ambulate w therapy due to pain in his left leg. Objective Data Objective Data Vital Signs: Vital Signs Temp Pulse Resp BP Pulse Ox O2 Del Method 37.2 C 84 18 144/72 H 97 Room Air 05/25/23 06:00 05/25/23 06:00 05/25/23 06:00 05/25/23 06:00 05/25/23 06:00 05/25/23 06:00 Oxygen Delivery Method Room Air Weight: 101.605 kg Body Mass Index (BMI) 25.9 Intake & Output: Intake and Output for Last 24 Hours 05/23/23 05/24/23 05/25/23 23:59 23:59 23:59 Intake Total 1344.75 / 1344.75 640 / 640 200 / 200 Output Total 600 / 600 1650 / 1650 1200 / 1200 Balance 744.75 / 744.75 -1010 / -1010 -1000 / -1000 Lab / Micro Data 05/25/23 05:55 05/25/23 05:10 Labs: Laboratory Results - last 24 hr 05/24/23 05:25: Sodium 135 L, Potassium 3.4 L, Chloride 103, Carbon Dioxide 2 7.0, Anion Gap 5, BUN 14, Creatinine 0.85, Estim Creat Clear Calc 95.58, Est GFR (MDRD) Af Amer 112, Est GFR (MDRD) Non-Af 93, BUN/Creatinine Ratio 16.4, Glucose 103, Hemoglobin A1c 6.1 H, Calcium 8.8, Total Bilirubin 1.10 H, AST 16, ALT 15 L , Alkaline Phosphatase 81, Total Protein 6.2 L, Albumin 2.5 L, Globulin 3.7, Albumin/Globulin Ratio 0.7 L, TSH 0.83 05/24/23 06:31: POC Glucose 106 05/24/23 11:56: POC Glucose 103 05/24/23 16:10: POC Glucose 145 H 05/24/23 22:13: Vancomycin Trough 10.2 05/24/23 22:15: POC Glucose 139 H 05/25/23 05:10: Sodium 135 L, Potassium 3.2 L, Chloride 101, Carbon Dioxide 29.0, Anion Gap 5, BUN 11, Creatinine 0.75, Estim Creat Clear Calc 81.24, Est GFR (MDRD) Af Amer 129, Est GFR (MDRD) Non-Af 107, BUN/Creatinine Ratio 14.6, Glucose 132 H, Calcium 9.2, Magnesium 2.0 05/25/23 05:55: WBC 15.7 H, RBC 4.85, Hgb 13.8, Hct 40.2, MCV 82.9, MCH 28.5, MCHC 34.3, RDW Std Deviation 39.6, RDW Coeff of Domo 13.1, Plt Count 163, MPV 11.4, Immature Gran % (Auto) 1.300 H, Neut % (Auto) 88.2 H, Lymph % (Auto) 4.9 L , [place] % (Auto) 5.1, Eos % (Auto) 0.1, Baso % (Auto) 0.4, Absolute Neuts (auto) 13.9 H, Absolute Lymphs (auto) 0.77 L, Nucleated RBC % 0 05/25/23 06:10: POC Glucose 121 H Rhythm Strip Rhythm Strip: Sinus Rhythm Rate: 96 Ectopy: None Physical Exam Const alert and no apparent distress Resp normal respiratory effort, no retractions, no use of accessory muscles and clear to auscultation bilaterally Cardio regular rate, regular rhythm, S1 normal heart sound and S2 normal heart sound GI normal to inspection, nondistended, normoactive bowel sounds, soft to palpation, non-tender and non-distended Extremity General Extremity: edema bilateral lower extremity Details: moderate Skin Skin Narrative: increased erythema of LLE from foot to below knee. Neuro Sensorium / Orientation: awake and alert Psych affect normal Assessment & Plan Assessment/Plan (1) Cellulitis of left lower extremity: PLAN: worse likely 2/2 tinea pedis. received vanc and Unasyn in ED continue vancomycin added pip/tazo on 05/25 CT on 05/25: showed diffuse induration of the SQ fat w skin thickening and low- density edema around the periphery of the calf musculature c/w diffuse cellulitis. No organized abscess. (2) Debility: PLAN: PT OT eval and treat Limited mobility due to pain in LLE. Additional therapy has been recommended. Hopefully if the the cellultis improves, that he will be more mobile. complicating this is that the [place] and [place] a leather show. He was staying with friends. (3) Tinea pedis: QUALIFIERS: Laterality: bilateral Qualified Code(s): B35.3 - Tinea pedis PLAN: clotrimazole topical PLAN: Plan chronic conditions: * DM2: controlled. continue metformin. add SSI. A1c 6.1 * HTN: continue lisinopril VTE prophylaxis: SQ enoxaparin. Charges/Coding Visit Charges Inpatient E&M: 71416 Subs Hosp L2
[2023-05-25 08:30] VITALS: BP 142/73; PULSE 82; RESP 16; TEMP 36.7; O2SAT 97
[2023-05-25] MEDS: metFORMIN HCl 1,000 MG Tablet 1000 MG PO (08:34)
[2023-05-25] MEDS: Enoxaparin 40 MG/0.4 ML Syringe SC (08:34)
[2023-05-25] MEDS: Cholecalciferol (VIT D3) 25 MCG TABLET (1,000 UNITS) PO (08:34)
[2023-05-25] MEDS: Lisinopril 20 MG Tablet PO (08:34)
[2023-05-25] MEDS: Menthol/Lanolin/Calamine/Znox 113 GM Tube 1 APPLIC TOPICAL ×2 (08:35→21:28)
[2023-05-25] MEDS: Clotrimazole 1 APPLIC Tube TOPICAL ×2 (08:35→21:27)
--- NOTE | 2023-05-25 09:32 | CT_ITS ---
CT LEFT LOWER EXTREMITY WITH 3-D IMAGING CLINICAL INDICATION: Leg pain and swelling TECHNIQUE: Axial CT images of the LEFT lower extremity was performed IV contrast material. Coronal and sagittal reformats were provided. RADIATION DOSAGE (If Supplied By Facility): CTDIvol = ( 15.35 ) mGy, DLP = ( 1063.75 ) mGycm COMPARISON: No relevant prior comparison study available FINDINGS: There is diffuse induration of the subcutaneous fat with fluid around the musculature of the lower left leg and skin thickening consistent with a diffuse cellulitis. No demonstrated abscess cavity. The bones are diffusely demineralized with age consistent knee and ankle joint arthrosis. No demonstrated fracture or suspicious osseous lesion. There are prominent calcaneal spurs. CT/Extremity Lower WITH Contrast IMPRESSION: Diffuse induration of the subcutaneous fat with skin thickening and low-density edema around the periphery of the calf musculature consistent with diffuse cellulitis. No organized abscess Bony structures show osteopenia with degenerative arthrosis at all visualized joint spaces. No demonstrated fracture or suspicious osseous lesion Electronically Signed: Jay Lubin MD at 11:00 EDT ,
[2023-05-25] MEDS: Potassium Chloride Oral Tablet 20 MEQ 40 MEQ PO (11:15)
[2023-05-25] MEDS: Vancomycin IV 1,000 MG/200 ML BAG 200 MG IV (11:22)
[2023-05-25 11:47] LABS: Bedside Glucose 116 mg/dL (74-106)
[2023-05-25 14:23] VITALS: BP 141/65; PULSE 86; RESP 20; TEMP 37; O2SAT 98
[2023-05-25 16:42] LABS: Bedside Glucose 127 mg/dL (74-106)
[2023-05-25 19:15] VITALS: BP 149/77; PULSE 81; RESP 18; TEMP 36.2; O2SAT 96
[2023-05-25 21:52] LABS: Bedside Glucose 132 mg/dL (74-106)
[2023-05-26] MEDS: Vancomycin IV 1,000 MG/200 ML BAG 200 MG IV ×2 (00:01→11:05)
[2023-05-26 01:30] VITALS: BP 139/71; PULSE 80; RESP 18; TEMP 36.8; O2SAT 95
[2023-05-26] MEDS: Acetaminophen 500 MG Tablet 1000 MG PO ×3 (06:43→21:21)
--- NOTE | 2023-05-26 07:11 | PN.HOSP_ITS ---
Reason for Visit Reason for Visit: Diagnoses Tinea pedis (05/23/23) Cellulitis of left lower limb (05/23/23) Other malaise (05/23/23) Subjective Subjective No new complaints. Objective Data Objective Data Vital Signs: Vital Signs Temp Pulse Resp BP Pulse Ox O2 Del Method 36.8 C 80 18 139/71 H 95 Room Air 05/26/23 01:30 05/26/23 01:30 05/26/23 01:30 05/26/23 01:30 05/26/23 01:30 05/26/23 01:30 Oxygen Delivery Method Room Air Weight: 101.605 kg Body Mass Index (BMI) 25.9 Intake & Output: Intake and Output for Last 24 Hours 05/24/23 05/25/23 05/26/23 23:59 23:59 23:59 Intake Total 640 / 640 1190 / 1190 250.00 / 250.00 Output Total 1650 / 1650 1999 / 1999 Balance -1010 / -1010 -810 / -810 250.00 / 250.00 Lab / Micro Data 05/26/23 07:25 05/26/23 07:25 Labs: Laboratory Results - last 24 hr 05/25/23 11:21: POC Glucose 116 H 05/25/23 16:23: POC Glucose 127 H 05/25/23 21:34: POC Glucose 132 H Micro: Microbiology 05/23/23 08:12 Blood Culture (Wb) - Arm Right Blood Culture - Preliminary No growth in 48 hours. 05/23/23 08:00 Blood Culture (Wb) - Anticubital Right Blood Culture - Preliminary No growth in 48 hours. Radiography Diagnostic Testing: Radiology Impression Lower Extremity CT 05/25/23 09:32 IMPRESSION: Diffuse induration of the subcutaneous fat with skin thickening and low-density edema around the periphery of the calf musculature consistent with diffuse cellulitis. No organized abscess Bony structures show osteopenia with degenerative arthrosis at all visualized joint spaces. No demonstrated fracture or suspicious osseous lesion Electronically Signed: Jay Lubin MD at 11:00 EDT , Rhythm Strip Rhythm Strip: Sinus Rhythm Rate: 96 Ectopy: None Physical Exam Const alert and no apparent distress Constitutional Narrative: up in chair. non-toxic. HEENT head/scalp atraumatic and moist oral mucous membranes Extremity Extremity Narrative: bilateral LE edema, L>R. Skin Skin Narrative: marked erythema from left foot to under left knee. no change from yesterday. Neuro oriented x3 and moves all extremities Sensorium / Orientation: awake and alert Psych affect normal Assessment & Plan Assessment/Plan (1) Cellulitis of left lower extremity: PLAN: worse likely 2/2 tinea pedis. received vanc and Unasyn in ED continue vancomycin added pip/tazo on 05/25 CT on 05/25: showed diffuse induration of the SQ fat w skin thickening and low- density edema around the periphery of the calf musculature c/w diffuse cellulitis. No organized abscess. 05/26: no change from 05/25: still with marked LLE erythema despite abx w pip/tazo and vancomycin. Check duplex. elevate LLE. (2) Debility: PLAN: PT OT eval and treat Limited mobility due to pain in LLE. Additional therapy has been recommended. Hopefully if the the cellultis improves, that he will be more mobile. complicating this is that the patient is from [place] state and [place] for a leather show. He was staying with friends. (3) Tinea pedis: QUALIFIERS: Laterality: bilateral Qualified Code(s): B35.3 - Tinea pedis PLAN: clotrimazole topical PLAN: Plan chronic conditions: * DM2: controlled. continue metformin. add SSI. A1c 6.1 * HTN: continue lisinopril VTE prophylaxis: SQ enoxaparin. Charges/Coding Visit Charges Inpatient E&M: 09344 Subs Hosp L2
[2023-05-26 07:45] LABS: Absolute Lymphocyte Count 0.84 X10^3/uL (0.83-4.51); Absolute Neutrophil Count 11.5 X10^3/uL (2.0-7.7); Basophil# 0.06 X10^3/uL; Basophil% 0.4 % (0-1); Eosinophil# 0.08 X10^3/uL; Eosinophils% 0.6 % (0-5); Hematocrit 36.5 % (40-54); Hemoglobin 12.3 g/dL (13.0-16.5); Lymphocyte # 0.84 X10^3/ul (0.83-4.51); Lymphocyte % 6.3 % (19-41); Mean Corp Hgb Conc 33.7 g/dL (32-36); Mean Corpuscular Hgb 28.3 pg (27.0-32.0); Mean Corpuscular Volume 84.1 fL (80-94); Monocyte# 0.77 X10^3/uL; Monocyte% 5.7 % (0-10); NRBC Flagged by Analyzer 0 % (0-5); Neutrophil # 11.54 X10^3/uL (2.7-7.7); Neutrophil % 86.2 % (47-70); Platelet Count 187 K/mm3 (150-450); RBC Distribution Width CV 13.3 % (11.6-14.6); RBC Distribution Width SD 41.4 fl (35.1-43.9); Red Blood Count 4.34 M/mm3 (4.6-6.2); White Blood Count 13.4 K/mm3 (4.4-11.0)
[2023-05-26 08:03] LABS: Anion Gap 6 (5-15); BUN 13 mg/dL (7-18); BUN/Creat Ratio 23.9 RATIO (10-20); Chloride 105 mmol/L (98-107); Creatinine, Serum 0.54 mg/dL (0.70-1.30); EST Glomerular Filtration Rate 155 mL/min (>60); Est Glom Filt Rate - Afr Amer 188 mL/min (>60); Estimated Creatinine Clearance 81.24 ml/min; Glucose 115 mg/dL (74-106); Potassium 3.2 mmol/L (3.5-5.1); Sodium Level 137 mmol/L (136-145)
[2023-05-26 08:10] VITALS: BP 138/68; PULSE 81; RESP 18; TEMP 36.8; O2SAT 98
[2023-05-26] MEDS: Cholecalciferol (VIT D3) 25 MCG TABLET (1,000 UNITS) PO (08:18)
[2023-05-26] MEDS: Enoxaparin 40 MG/0.4 ML Syringe SC (08:18)
[2023-05-26] MEDS: Lisinopril 20 MG Tablet PO (08:18)
[2023-05-26] MEDS: metFORMIN HCl 1,000 MG Tablet 1000 MG PO (08:18)
[2023-05-26] MEDS: Menthol/Lanolin/Calamine/Znox 113 GM Tube 1 APPLIC TOPICAL ×2 (08:19→21:22)
[2023-05-26] MEDS: Clotrimazole 1 APPLIC Tube TOPICAL ×2 (08:19→21:22)
--- NOTE | 2023-05-26 10:24 | VDLE_ITS ---
Reason For Study: LLE Swelling RIGHT LEFT FV is compressible, spontaneous, phasic, GSV is normal. competent and demonstrates normal CFV is compressible, spontaneous, phasic, augmentation. competent, and demonstrates normal Procedure augmentation. This is a venous duplex using B-mode, color FV is compressible, spontaneous, phasic, flow and spectral Doppler. competent and demonstrates normal Exam performed portable in patient room. augmentation. The exam was diagnostic. POP V is compressible, spontaneous, phasic, The study was technically difficult. competent and demonstrates normal A preliminary report was called and/or faxed augmentation. to [facility] faculty research physician. T/P Trunk is compressible. PTV is compressible. LT PerV is compressible. VL/Venous Duplex US, Unilateral Interpretation Summary Deep veins of the left lower extremity are patent and compressible segmentally. There is no evidence of left lower extremity deep vein thrombosis. The left great saphenous vein kimberly ears patent and compressible segmentally. Ordering Physician: George Stone Referring Physician: [facility] Performed By: Gurmeet Pantoja RVT
[2023-05-26 11:09] LABS: Bedside Glucose 127 mg/dL (74-106)
[2023-05-26 12:35] LABS: Bedside Glucose 108 mg/dL (74-106)
[2023-05-26 16:37] LABS: Bedside Glucose 130 mg/dL (74-106)
[2023-05-26 18:00] VITALS: BP 146/68; PULSE 80; RESP 17; TEMP 37.4
[2023-05-26 21:37] LABS: Bedside Glucose 114 mg/dL (74-106)
[2023-05-26 23:31] LABS: Vancomycin, Trough Level 11.9 ug/mL (5.0-15.0)
--- NOTE | 2023-05-26 23:40 | PCM.RX.CS ---
Consult Antibiotic Management Pharmacy has been consulted to manage selected antiobiotic: Vancomycin Type of Intervention Type of Consult: Follow-up Suspected Infection Suspected Infection: Skin/Soft tissue Labs Labs: Sodium 137 mmol/L (136-145) 05/26/23 07:25 Potassium 3.2 mmol/L (3.5-5.1) L 05/26/23 07:25 Chloride 105 mmol/L (98-107) 05/26/23 07:25 Carbon Dioxide 26.0 mmol/L (21.0-32.0) 05/26/23 07:25 Anion Gap 6 (5-15) 05/26/23 07:25 BUN 13 mg/dL (7-18) 05/26/23 07:25 Creatinine 0.54 mg/dL (0.70-1.30) L 05/26/23 07:25 Est GFR (MDRD) Af Amer 188 mL/min (>60) 05/26/23 07:25 Est GFR (MDRD) Non-Af 155 mL/min (>60) 05/26/23 07:25 BUN/Creatinine Ratio 23.9 RATIO (10-20) H 05/26/23 07:25 Glucose 115 mg/dL (74-106) H 05/26/23 07:25 Vancomycin Trough 11.9 ug/mL (5.0-15.0) 05/26/23 22:30 Microbiology Microbiology: Microbiology 05/23/23 08:12 Blood Culture (Wb) - Arm Right Blood Culture - Preliminary No growth in 48 hours. 05/23/23 08:00 Blood Culture (Wb) - Anticubital Right Blood Culture - Preliminary No growth in 48 hours. Dosing Weight Weight used for dosin.6 kg Estimated Creatinine Clearance Estimated Creatinine Clearance: 141 Goal Trough Goal Trough: 10-15 mcg/mL Pharmacy Plan for Drug Dosing Pharmacy Plan for Drug Dosing: Vancomycin trough level of 11.9 was within the moderate target range of 10-15. Will continue dosing at 1000mg q12h, and will draw another trough in three days. Pharmacy Service will continue to monitor and adjust dosing as required. Follow-Up Labs Follow-Up Labs: Trough: Vancomycin Date/Time Labs Ordered Labs to be done on [date and time ordered]: 05/29/23 @[id number]
[2023-05-27] VITALS (7 sets, daily range): BP systolic 134–150; BP diastolic 49–73; PULSE 78–87; RESP 16–18; TEMP 36.5–37.3; O2SAT 96–97
--- NOTE | 2023-05-27 | LES_PTH ---
PATIENT: PAULINO VITALE LOC: [facility] U#:[id number] AGE/SX: 77/M ROOM: [facility] [place]23/[address]: Dr. Radha Cedillo DO : 1945 BED: 1 DIS: 05/30/2023 SPEC #: [id number] RECD: 05/28/23 08:56 STATUS: BHUPINDER REKeyana #: [id number] ZELDA: 05/27/23 00:[address]: Eben Tobar DEPT: SURGICAL PATHOLOGY RECD BY: Juan Ramey ENTERED: 05/28/23 08:56 SP TYPE: Lesion OTHR DR: MD Dr. George Gillespie DO Dr. Kathryn Lee, DO Dr. Robert Leininger, MD [facility] Tissues: Skin of leg, NOS Procedures: Gen Path Consultation (on slides) Special Stain Group I Surgery Specimen Level IV GMS Stain (control) Comments: @ Ordering doctor for SUIV edited from to @ lesley TOPETE at 05/28/23 1449 @ Submitting doctor edited from to @ lesley TOPETE at 05/28/23 1449 HEADER OPERATION: Left leg skin biopsy PRE-OP DIAGNOSIS: LLE cellulitis TISSUE SUBMITTED: LLE skin biopsy MICROSCOPIC DIAGNOSIS Skin lesion of left lower extremity, punch biopsy: Suggestive of early small vessel vasculitis. See comment. AM:ana 06/05/2023 COMMENT The finding are not entirely specific. However, they could be seen in early changes of leukocytoclastic vasculitis. The differential diagnosis includes an infectious/inflammatory process. Clinical correlation is suggested. This case is reviewed in consultation with Dr. Torres of [employer]. The complete report in is EMR. GMS stain with matched control is negative for fungal organisms. This case was discussed with Dr. Cedillo on 05/30/23 at 12:25 p.m. Case has been reviewed in consultation with Dr. Colin who concurs with the above diagnosis. IDC:SJ MICROSCOPIC DESCRIPTION Slides are reviewed. GROSS DESCRIPTION Received is one container labeled with the patient's name and not further designated. The specimen consists of two punch biopsies of harvey-white skin each measuring 0.4 cm in diameter and 0.4 cm in length. The specimen is totally submitted in one cassette. / BEULAH:ana 05/28/2023 TC:2 CPT: 82396, 04549
[2023-05-27 06:17] LABS: Hematocrit 36.2 % (40-54); Hemoglobin 12.2 g/dL (13.0-16.5); Mean Corp Hgb Conc 33.7 g/dL (32-36); Mean Corpuscular Hgb 28.2 pg (27.0-32.0); Mean Corpuscular Volume 83.8 fL (80-94); Mean Platelet Vol. 10.7 fl (6.2-12.0); Platelet Count 212 K/mm3 (150-450); RBC Distribution Width CV 13.3 % (11.6-14.6); Red Blood Count 4.32 M/mm3 (4.6-6.2); White Blood Count 10.9 K/mm3 (4.4-11.0)
[2023-05-27] MEDS: Acetaminophen 500 MG Tablet 1000 MG PO ×3 (06:24→22:30)
[2023-05-27 06:49] LABS: Anion Gap 6 (5-15); BUN 12 mg/dL (7-18); BUN/Creat Ratio 19.1 RATIO (10-20); Calcium,Total 8.9 mg/dL (8.5-10.1); Chloride 105 mmol/L (98-107); Creatinine, Serum 0.63 mg/dL (0.70-1.30); EST Glomerular Filtration Rate 132 mL/min (>60); Est Glom Filt Rate - Afr Amer 160 mL/min (>60); Estimated Creatinine Clearance 81.24 ml/min; Glucose 115 mg/dL (74-106); Potassium 3.2 mmol/L (3.5-5.1); Sodium Level 139 mmol/L (136-145)
[2023-05-27 06:50] LABS: Bedside Glucose 116 mg/dL (74-106)
[2023-05-27] MEDS: Enoxaparin 40 MG/0.4 ML Syringe SC (09:50)
[2023-05-27] MEDS: metFORMIN HCl 1,000 MG Tablet 1000 MG PO (09:50)
[2023-05-27] MEDS: Menthol/Lanolin/Calamine/Znox 113 GM Tube 1 APPLIC TOPICAL (09:50)
[2023-05-27] MEDS: Cholecalciferol (VIT D3) 25 MCG TABLET (1,000 UNITS) PO (09:51)
[2023-05-27] MEDS: Lisinopril 20 MG Tablet PO (09:51)
[2023-05-27] MEDS: Clotrimazole 1 APPLIC Tube TOPICAL ×2 (09:52→22:44)
[2023-05-27] MEDS: Potassium Chloride Oral Tablet 20 MEQ 40 MEQ PO (10:20)
[2023-05-27] MEDS: Vancomycin IV 1,000 MG/200 ML BAG 200 MG IV ×3 (11:07→22:29)
--- NOTE | 2023-05-27 11:59 | WOUNDNOTE ---
skin photo: left lower leg
--- NOTE | 2023-05-27 12:00 | WOUNDNOTE ---
skin photo: left posterolateral lower leg
--- NOTE | 2023-05-27 12:01 | WOUNDNOTE ---
skin photo: left medial lower leg
--- NOTE | 2023-05-27 12:05 | WOUNDNOTE ---
Was asked to see the patient for redness and discoloration to the left lower leg. patient was admitted for cellulitis. there are no open wounds to culture at this time. patient does have some small fissures noted to the plantar foot. this is most likely the nidus of the infection. physician and nursing both state leg is more discolored today. there is some purple discoloration noted from the foot to just below the knee. appears to be some sort of vasculitis. leg is painful to touch. moderate edema noted. there is some slight blistering noted to the left medial ankle area. no active drainage noted. do not feel patient could tolerate compression at this time. would recommend leg elevation as much as possible. leg is warm to touch. pedal pulses are weak but present. will continue to monitor. see skin photos.
[2023-05-27 12:06] LABS: Bedside Glucose 151 mg/dL (74-106)
--- NOTE | 2023-05-27 14:11 | PCM.CONS.GEN ---
Assessment & Plan Assessment/Plan (1) Cellulitis of left lower extremity: PLAN: Concern this may be more likely vasculitis given timing and appearance. Recommend vasculitis workup and surgery consult for skin biopsy. Cont vanc for now, will stop zosyn. Will follow, thank you, d/w Dr. Cedillo HPI Consult Data Date of Consult: 05/27/23 HPI Narrative Reason for Consultation: LLE cellulitis HPI Narrative: PAULINO VITALE, is a 77 M with h/o DM, htn, presented with a month of progressive LLE swelling, redness, tenderness, general weakness. No inciting events, no drainage from leg. Mild fevers. No recent new meds. Came to ED, admitted on vanc/unasyn, changed to vanc/zosyn, not seeing much improvement in leg. Full ROS performed and neg except as noted above. [facility] Medical History Diabetes mellitus HTN (hypertension) Home Medications cholecalciferol (vitamin D3) 25 mcg (1,000 unit) tablet 25 mcg PO DAILY SUPPLEMENT 05/23/23 [History Last Taken 05/23/23] lisinopril 40 mg tablet 20 mg PO DAILY BLOOD PRESSURE 05/23/23 [History Last Taken 05/23/23] metformin 500 mg tablet 1,000 mg PO DAILY DIABETES 05/23/23 [History Last Taken 05/23/23] psyllium husk 0.52 gram capsule (Daily Fiber) 0.52 g PO DAILY PRN CONSTIPATION 05/23/23 [History Last Taken Unknown] riboflavin (vitamin B2) 100 mg tablet (Vitamin B-2) 100 mg PO DAILY SUPPLEMENT 05/23/23 [History Last Taken 05/23/23] Allergy/AdvReac Type Severity Reaction Status Date / Time No Known Allergies Allergy Verified 05/23/23 07:23 Family History no significant family his Surgical History no surgical history Social History Smoking Status: Former smoker Physical Exam Const alert, oriented x3 and no apparent distress General Appearance: cooperative and well developed HEENT normocephalic and head/scalp atraumatic Eyes PERRL and EOMs intact bilaterally Neck supple and No nodes Resp normal air movement and clear to auscultation bilaterally Cardio regular rate and regular rhythm GI soft to palpation, non-tender and non-distended Extremity General Extremity: edema Skin Skin Narrative: L lower leg with palpable purpura, mild warmth/tenderness, nonblanching Neuro CN's II-XII intact bilaterally Lab / Micro Data Attestation: I reviewed the patient's lab results. 05/27/23 05:50 05/27/23 05:50 Labs: Laboratory Results - last 24 hr 05/26/23 16:19: POC Glucose 130 H 05/26/23 21:20: POC Glucose 114 H 05/26/23 22:30: Vancomycin Trough 11.9 05/27/23 05:50: WBC 10.9, RBC 4.32 L, Hgb 12.2 L, Hct 36.2 L, MCV 83.8, MCH 28.2, MCHC 33.7, RDW Std Deviation 41.0, RDW Coeff of Domo 13.3, Plt Count 212, MPV 10.7, Sodium 139, Potassium 3.2 L, Chloride 105, Carbon Dioxide 28.0, Anion Gap 6, BUN 12, Creatinine 0.63 L, Estim Creat Clear Calc 81.24, Est GFR (MDRD) Af Amer 160, Est GFR (MDRD) Non-Af 132, BUN/Creatinine Ratio 19.1, Glucose 115 H, Calcium 8.9 05/27/23 06:26: POC Glucose 116 H 05/27/23 11:47: POC Glucose 151 H Rhythm Strip Rhythm Strip: Sinus Rhythm Rate: 96 Ectopy: None Radiology Impression Venous Doppler Study 05/26/23 10:24 Interpretation Summary Deep veins of the left lower extremity are patent and compressible segmentally. There is no evidence of left lower extremity deep vein thrombosis. The left great saphenous vein appears patent and compressible segmentally. Ordering Physician: George Stone Referring Physician: [facility] Performed By: Gurmeet Pantoja RVT
--- NOTE | 2023-05-27 16:01 | PN.HOSP_ITS ---
Reason for Visit Reason for Visit: Left lower extremity swelling and redness/weakness Subjective Subjective Mr. Thomason is a 77-year-old white male who presented to the emergency department at [facility] on 05/23/2023 with weakness and left lower extremity erythema. He resides in [facility] and is here for a leather show. He has been staying with friends and per report on admission was progressively getting weaker requiring assistance to get out of bed. They were concerned so they had him evaluated in the emergency department. At the time of admission he was afebrile with a heart rate of 88, blood pressure 149/63 and pulse ox was 94% on room air. He had a mild leukocytosis with a left shift. White count was 13.3 having an 89.1% neutrophilia. His platelet count was low at 118,000 which has since resolved. He was found to be hypokalemic with a potassium of 3.4 but his BMP was otherwise unremarkable. Hemoglobin A1c was 1.6. His thyroid was normal. He was placed on Unasyn and vancomycin and admitted to the medical floor. At 24 hours it was felt his cellulitis looked improved on the vancomycin however at 48 hours after admission his leg worsened he was not able to ambulate with therapy due to pain in his leg. The erythema had intensified and a CT was performed that showed diffuse induration of the subcutaneous fat with skin thickening and low-density edema around the periphery of the calf muscle consistent with diffuse cellulitis and no organized abscess. Zosyn was added at this time and he was maintained on Zosyn and vancomycin. Over the next 24 hours his leg did not really improve and a duplex was ordered which was unremarkable for any DVT. Today he complains of ongoing pain and redness. He was able to give me a very good history however did tell infectious disease that this has been ongoing and worsening over the last month. The leg has reportedly progressed from being erythematous to now being acute attic and having palpable purpura. ID recommended continuing the vancomycin but disc ontinuing the Zosyn. I since ordered sed rate and CRP vasculitic work-up. Objective Data Objective Data Vital Signs: Vital Signs Temp Pulse Resp BP Pulse Ox O2 Del Method 97.7 F L 78 16 134/73 H 97 Room Air 05/27/23 10:05/27/23 10:05/27/23 10:05/27/23 10:06 05/27/23 10:06 05/27/23 10:06 Oxygen Delivery Method Room Air Weight: 101.605 kg Body Mass Index (BMI) 25.9 Intake & Output: Intake and Output for Last 24 Hours 05/25/23 05/26/23 05/27/23 23:59 23:59 23:59 Intake Total 1190 / 1190 950.00 / 1000.00 800 / 800 Output Total 2000 / 2000 300 / 300 1200 / 1200 Balance -810 / -810 650.00 / 700.00 -400 / -400 Lab / Micro Data 05/27/23 05:50 05/27/23 05:50 Labs: Laboratory Results - last 24 hr 05/26/23 16:19: POC Glucose 130 H 05/26/23 21:20: POC Glucose 114 H 05/26/23 22:30: Vancomycin Trough 11.9 05/27/23 05:50: WBC 10.9, RBC 4.32 L, Hgb 12.2 L, Hct 36.2 L, MCV 83.8, MCH 28.2, MCHC 33.7, RDW Std Deviation 41.0, RDW Coeff of Domo 13.3, Plt Count 212, MPV 10.7, Sodium 139, Potassium 3.2 L, Chloride 105, Carbon Dioxide 28.0, Anion Gap 6, BUN 12, Creatinine 0.63 L, Estim Creat Clear Calc 81.24, Est GFR (MDRD) Af Amer 160, Est GFR (MDRD) Non-Af 132, BUN/Creatinine Ratio 19.1, Glucose 115 H , Calcium 8.9 05/27/23 06:26: POC Glucose 116 H 05/27/23 11:47: POC Glucose 151 H Micro: Microbiology 05/23/23 08:12 Blood Culture (Wb) - Arm Right Blood Culture - Preliminary No growth in 48 hours. 05/23/23 08:00 Blood Culture (Wb) - Anticubital Right Blood Culture - P reliminary No growth in 48 hours. Radiography Diagnostic Testing: Radiology Impression Venous Doppler Study 05/26/23 10:24 Interpretation Summary Deep veins of the left lower extremity are patent and compressible segmentally. There is no evidence of left lower extremity deep vein thrombosis. The left great saphenous vein appears patent and compressible segmentally. Ordering Physician: George Stone Referring Physician: [facility] Performed By: Gurmeet Pantoja RVT Rhythm Strip Rhythm Strip: Sinus Rhythm Rate: 96 Ectopy: None Physical Exam Const alert, oriented x3, no apparent distress, average body habitus and well nourished Constitutional Narrative: Older white male, sitting up in a chair at the bedside, appears comfortable at rest, nontoxic-appearing, pleasant but poor historian HEENT head/scalp atraumatic, moist oral mucous membranes and oropharynx normal Head and Scalp: normocephalic Resp normal respiratory effort, no retractions, no use of accessory muscles and clear to auscultation bilaterally Auscultation: Negative for rales, rhonchi or wheezes Cardio regular rate, regular rhythm, S1 normal heart sound, S2 normal heart sound, no murmurs, no rub, no gallops and no clicks GI normal to inspection, nondistended, normoactive bowel sounds, soft to palpation and non-tender Extremity Extremity Narrative: Left lower extremity with erythema and a purple hue from his dorsum of his foot to just below his left knee, leg is warm to touch and tender from the dorsum of his foot to the top of the erythematous area, there is no cyanosis or clubbing Skin Skin Narrative: Patient with what appears to be tinea pedis on his left foot and several areas of cracked skin on the dorsum aspect of his foot as well as between the toes, skin is hypersensitive to touch Neuro oriented x3, moves all extremities and no focal motor deficits Neuro Narrative: Decreased movement in left lower extremity due to pain Speech: speech normal Psych affect normal Psych Narrative: Eye contact is good, patient is pleasant and interacts normally Assessment & Plan Assessment/Plan (1) Tinea pedis: QUALIFIERS: Laterality: bilateral Qualified Code(s): B35.3 - T inea pedis (2) Debility: (3) Edema of left lower extremity: PLAN: Plan Edema/erythema left lower extremity -Seems to be worsening clinically per report of nursing however have not seen this before today -Does not seem to be infectious -ID consulted and recommended continuing vancomycin for now and discontinuing Zosyn and they agree this might be vasculitic in nature -Check sed rate/CRP/ANCA/KUNAL with reflex panel -Consult general surgery for skin biopsy -Hold off on steroids for now until work-up is more complete Tinea pedis -Continue topical antifungals -Wound care is following Generalized weakness/debility -Continue PT/OT -Patient currently would like to go home however his debility is such that this may not be possible at discharge -Continue to monitor DM-2 -Continue home metformin -A1c is fairly well controlled at 6.1 -Continue SSI especially in the event that we would need to start steroids Hypertension -Continue home lisinopril DVT prophylaxis -Continue subcu enoxaparin CODE STATUS Full code Charges/Coding Visit Charges Inpatient E&M: 52662 Subs Hosp L2
--- NOTE | 2023-05-27 16:56 | CON.PCM.SX_ITS ---
Assessment & Plan Assessment/Plan (1) Edema of left lower extremity: PLAN: The patient has cellulitis of the left lower extremity and there is concern for vasculitis. I was consulted to perform a biopsy of the skin. I did perform a biopsy of his left lower extremity and sent the skin for pathology. Patient tolerated the procedure well. See operative note. Patient will need sutures removed in 10 days. Eben Tobar MD Pager: [facility] [address] [place] [address], [address] [place] [address] Office: HPI Consult Data Date of Consult: 05/27/23 HPI Narrative HPI Narrative: PAULINO VITALE, is a 77 M who presents with left lower extremity issues. Patient notes that he is diabetic and he started having swelling. The left lower leg started turning dark colors yesterday. They turned red 2 days ago and that yesterday it started blackening. [facility] Medical History Diabetes mellitus HTN (hypertension) Home Medications cholecalciferol (vitamin D3) 25 mcg (1,000 unit) tablet 25 mcg PO DAILY SUPPLEMENT 05/23/23 [History Last Taken 05/23/23] lisinopril 40 mg tablet 20 mg PO DAILY BLOOD PRESSURE 05/23/23 [History Last Taken 05/23/23] metformin 500 mg tablet 1,000 mg PO DAILY DIABETES 05/23/23 [History Last Taken 05/23/23] psyllium husk 0.52 gram capsule (Daily Fiber) 0.52 g PO DAILY PRN CONSTIPATION 05/23/23 [History Last Taken Unknown] riboflavin (vitamin B2) 100 mg tablet (Vitamin B-2) 100 mg PO DAILY SUPPLEMENT 05/23/23 [History Last Taken 05/23/23] Allergy/AdvReac Type Severity Reaction Status Date / Time No Known Allergies Allergy Verified 05/23/23 07:23 Family History no significant family his Surgical History no surgical history Social History Smoking Status: Former smoker Physical Exam Const alert and oriented x3 HEENT normocephalic Eyes PERRL Resp normal respiratory effort Cardio Rate: regular rate Rhythm: regular rhythm GI normal to inspection, nondistended, normoactive bowel sounds Extremity Extremity Narrative: Left lower extremity has skin changes of possible ischemia. Patient does have motion in the left lower extremity but there is swelling. There is skin peeling. The lower leg has circumferential darkening of the skin. Lab / Micro Data 05/27/23 05:50 05/27/23 05:50 Labs: Laboratory Results - last 24 hr 05/26/23 21:20: POC Glucose 114 H 05/26/23 22:30: Vancomycin Trough 11.9 05/27/23 05:50: WBC 10.9, RBC 4.32 L, Hgb 12.2 L, Hct 36.2 L, MCV 83.8, MCH 28.2, MCHC 33.7, RDW Std Deviation 41.0, RDW Coeff of Domo 13.3, Plt Count 212, MPV 10.7, Sodium 139, Potassium 3.2 L, Chloride 105, Carbon Dioxide 28.0, Anion Gap 6, BUN 12, Creatinine 0.63 L, Estim Creat Clear Calc 81.24, Est GFR (MDRD) Af Amer 160, Est GFR (MDRD) Non-Af 132, BUN/Creatinine Ratio 19.1, Glucose 115 H , Calcium 8.9 05/27/23 06:26: POC Glucose 116 H 05/27/23 11:47: POC Glucose 151 H 05/27/23 15:20: C-React Prot Ext Range 177.00 H Rhythm Strip Rhythm Strip: Sinus Rhythm Rate: 96 Ectopy: None Radiology Impression Venous Doppler Study 05/26/23 10:24 Interpretation Summary Deep veins of the left lower extremity are patent and compressible segmentally. There is no evidence of left lower extremity deep vein thrombosis. The left great saphenous vein appears patent and compressible segmentally. Ordering Physician: George Stone Referring Physician: [facility] Performed By: Gurmeet Pantoja RVT
--- NOTE | 2023-05-27 16:58 | PCM.OPRPT ---
Report of Operation Date of Procedure: 05/27/23 Pre-Operative Diagnosis: Cellulitis of left lower extremity Post-Operative Diagnosis: Same Surgery/Procedure Performed:: Skin biopsy of left lower extremity Specimen's removed: Left lower extremity skin Description of Procedure: The patient's left anterior lower leg was prepped and draped. Local anesthetic was injected into the skin. Next a 4 mm punch biopsy was used in 2 locations to biopsy the skin. The 4-0 nylon suture was then used to close the incision. There was minimal bleeding. Patient tolerated the procedure well. Bandage was placed.
[2023-05-27 17:19] LABS: Erythrocyte Sedimentation Rate 65 mm/hr (0-20)
[2023-05-27] MEDS: predniSONE 20 MG Tablet 50 MG PO (18:46)
[2023-05-27] MEDS: 0.9% Saline Lock 10 ML Syringe IV (22:45)
--- NOTE | 2023-05-27 23:00 | NURSING ---
Entire purewick catheter system (catheter, tubing and canister) changed on patient and urine was then collected and submitted for U/A.
[2023-05-27 23:06] LABS: Bacteria 0 SEEN /hpf (None Seen); Mucous, Urine 0 SEEN /hpf (<or=2+); Red Blood Cells-Urine 0 SEEN /hpf (0-5); Squamous Epithelial Cells - UA 0 SEEN /hpf (0-5)
[2023-05-27 23:14] LABS: Color, Urine Yellow (Yellow); Glucose, Dipstick 50 mg/dl (Normal); Ketone-Dipstick 15 mg/dl (Negative); Leukocyte Esterase-Dipstick 25 /ul (Negative); Nitrite-Dipstick Negative (Negative); Occult Blood-Urine Negative /ul (Negative); Protein-Dipstick Negative (Negative); Specific Gravity, Urine 1.015 (1.002-1.030); Urine Bilirubin Dipstick Negative (Negative); Urine Clarity Clear (Clear); Urine Urobilinogen Normal (Normal)
[2023-05-27 23:26] LABS: White Blood Cells 0-5 SEEN /hpf (0-5)
[2023-05-27 23:31] LABS: Bedside Glucose 227 mg/dL (74-106)
[2023-05-28] VITALS (7 sets, daily range): BP systolic 140–158; BP diastolic 60–79; PULSE 75–85; RESP 18; TEMP 36.7–37.1; O2SAT 96–98
[2023-05-28] MEDS: 0.9% Saline Lock 10 ML Syringe IV ×2 (06:10→22:22)
[2023-05-28] MEDS: Acetaminophen 500 MG Tablet 1000 MG PO ×3 (06:10→22:20)
[2023-05-28 06:41] LABS: Bedside Glucose 203 mg/dL (74-106)
[2023-05-28] MEDS: Insulin Lispro 100 UNIT/ML INSULN.PEN SC ×3 (06:48→17:06)
[2023-05-28 06:57] LABS: Absolute Lymphocyte Count 0.72 X10^3/uL (0.83-4.51); Absolute Neutrophil Count 8.4 X10^3/uL (2.0-7.7); Basophil# 0.02 X10^3/uL; Basophil% 0.2 % (0-1); Hematocrit 38.6 % (40-54); Hemoglobin 13.1 g/dL (13.0-16.5); Lymphocyte # 0.72 X10^3/ul (0.83-4.51); Lymphocyte % 7.3 % (19-41); Mean Corp Hgb Conc 33.9 g/dL (32-36); Mean Corpuscular Hgb 28.2 pg (27.0-32.0); Monocyte# 0.44 X10^3/uL; Monocyte% 4.5 % (0-10); NRBC Flagged by Analyzer 0 % (0-5); Neutrophil # 8.43 X10^3/uL (2.7-7.7); Neutrophil % 86.1 % (47-70); Platelet Count 276 K/mm3 (150-450); RBC Distribution Width CV 13.6 % (11.6-14.6); RBC Distribution Width SD 41.6 fl (35.1-43.9); Red Blood Count 4.65 M/mm3 (4.6-6.2); White Blood Count 9.8 K/mm3 (4.4-11.0)
[2023-05-28 07:27] LABS: ALB/GLOB Ratio 0.5 RATIO (0.9-2.4); AST(SGOT) 29 U/L (15-37); Alanine Aminotransfer ALT/SGPT 39 U/L (16-61); Albumin, Serum 2.2 g/dL (3.2-5.0); Alkaline Phosphatase 85 U/L (45-117); Anion Gap 6 (5-15); BUN 11 mg/dL (7-18); BUN/Creat Ratio 16.5 RATIO (10-20); Calcium,Total 9.5 mg/dL (8.5-10.1); Chloride 102 mmol/L (98-107); Creatinine, Serum 0.67 mg/dL (0.70-1.30); EST Glomerular Filtration Rate 123 mL/min (>60); Est Glom Filt Rate - Afr Amer 149 mL/min (>60); Estimated Creatinine Clearance 81.24 ml/min; Globulin 4.7 g/dL (2.2-4.2); Glucose 214 mg/dL (74-106); Magnesium 2.1 mg/dL (1.6-2.6); Phosphorus 2.8 mg/dL (2.5-4.9); Potassium 3.6 mmol/L (3.5-5.1); Protein, Total 6.9 g/dL (6.4-8.2); Sodium Level 138 mmol/L (136-145)
[2023-05-28] MEDS: metFORMIN HCl 1,000 MG Tablet 1000 MG PO (08:06)
[2023-05-28] MEDS: predniSONE 20 MG Tablet 50 MG PO (08:18)
--- NOTE | 2023-05-28 09:11 | WOUNDNOTE ---
In to reassess the left lower leg. patient had a punch biopsy yesterday. there is minimal drainage noted from the biopsy sites. some serous drainage noted from the medial ankle area. the edema has improved. patient denies much discomfort today. washed leg and foot with soap and water. pat dry. placed ABD pads to the weeping area and wrapped with kerlix. applied BRENDA wraps from the base of the toes to just below the knee. pt tolerated well. leg elevated up on pillows.
[2023-05-28] MEDS: Menthol/Lanolin/Calamine/Znox 113 GM Tube 1 APPLIC TOPICAL (10:48)
[2023-05-28] MEDS: Clotrimazole 1 APPLIC Tube TOPICAL ×2 (10:49→22:21)
[2023-05-28] MEDS: Enoxaparin 40 MG/0.4 ML Syringe SC (10:49)
[2023-05-28] MEDS: Lisinopril 20 MG Tablet PO (10:49)
[2023-05-28] MEDS: Cholecalciferol (VIT D3) 25 MCG TABLET (1,000 UNITS) PO (10:50)
[2023-05-28] MEDS: Vancomycin IV 1,000 MG/200 ML BAG 200 MG IV ×2 (10:53→22:20)
--- NOTE | 2023-05-28 11:03 | PN.HOSP_ITS ---
Reason for Visit Reason for Visit: Left lower extremity swelling and redness/weakness Subjective Subjective Patient states her leg feels better today. The swelling and pain. Discussed with the wound nurse as well and she states that she feels the swelling and tenderness is much improved today as well. No issues overnight. Objective Data Objective Data Vital Signs: Vital Signs Temp Pulse Resp BP Pulse Ox O2 Del Method 98.2 F 78 18 143/60 H 96 Room Air 05/28/23 08:04 05/28/23 08:04 05/28/23 08:04 05/28/23 08:04 05/28/23 08:04 05/28/23 08:04 Oxygen Delivery Method Room Air Weight: 101.605 kg Body Mass Index (BMI) 25.9 Intake & Output: Intake and Output for Last 24 Hours 05/26/23 05/27/23 05/28/23 23:59 23:59 23:59 Intake Total 950.00 / 1000.00 1000 / 1000 500 / 500 Output Total 300 / 300 2200 / 2200 900 / 900 Balance 650.00 / 700.00 -1200 / -1200 -400 / -400 Lab / Micro Data 05/28/23 06:23 05/28/23 06:23 Labs: Laboratory Results - last 24 hr 05/27/23 11:47: POC Glucose 151 H 05/27/23 15:20: C-React Prot Ext Range 177.00 H 05/27/23 16:41: ESR 65 H 05/27/23 22:51: Urine Color Yellow, Urine Clarity Clear, Urine pH 8.0, Ur Specific Duck 1.015, Urine Protein Negative, Urine Glucose (UA) 50 H, Urine Ketones 15 H, Urine Occult Blood Negative, Urine Nitrite Negative, Urine Bilirubin Negative, Urine Urobilinogen Normal, Ur Leukocyte Esterase 25 H, Urine RBC 0 SEEN, Urine WBC 0-5 SEEN, Ur Squamous Epith Cells 0 SEEN, Urine Bacteria 0 SEEN, Urine Mucus 0 SEEN 05/27/23 23:13: POC Glucose 227 H 05/28/23 06:18: POC Glucose 203 H 05/28/23 06:23: WBC 9.8, RBC 4.65, Hgb 13.1, Hct 38.6 L, MCV 83.0, MCH 28.2, MCHC 33.9, RDW Std Deviation 41.6, RDW Coeff of Domo 13.6, Plt Count 276, MPV 10.0, Immature Gran % (Auto) 1.900 H, Neut % (Auto) 86.1 H, Lymph % (Auto) 7.3 L , [place] % (Auto) 4.5, Eos % (Auto) 0.0, Baso % (Auto) 0.2, Absolute Neuts (auto) 8.4 H, Absolute Lymphs (auto) 0.72 L, Nucleated RBC % 0, Sodium 138, Potassium 3.6, Chloride 102, Carbon Dioxide 30.0, Anion Gap 6, BUN 11, Creatinine 0.67 L, Estim Creat Clear Calc 81.24, Est GFR (MDRD) Af Amer 149, Est GFR (MDRD) Non-Af 123, BUN/Creatinine Ratio 16.5, Glucose 214 H, Calcium 9.5, Phosphorus 2.8, Magnesium 2.1, Total Bilirubin 0.70, AST 29, ALT 39, Alkaline Phosphatase 85, Total Protein 6.9, Albumin 2.2 L, Globulin 4.7 H, Albumin/Globulin Ratio 0.5 L Micro: Microbiology 05/23/23 08:12 Blood Culture (Wb) - Arm Right Blood Culture - Final No growth in 5 days. 05/23/23 08:00 Blood Culture (Wb) - Anticubital Right Blood Culture - Final No growth in 5 days. Rhythm Strip Rhythm Strip: Sinus Rhythm Rate: 96 Ectopy: None Physical Exam Const alert, oriented x3, no apparent distress, average body habitus and well nourished Constitutional Narrative: Older white male, sitting up in bed, watching television, appears comfortable at rest, nontoxic-appearing HEENT normocephalic, head/scalp atraumatic, moist oral mucous membranes and oropharynx normal Resp normal respiratory effort, no retractions, no use of accessory muscles and clear to auscultation bilaterally Auscultation: Negative for rales, rhonchi or wheezes Cardio regular rate, regular rhythm, S1 normal heart sound, S2 normal heart sound, no murmurs, no rub, no gallops and no clicks GI normal to inspection, nondistended, normoactive bowel sounds, soft to palpation, non-tender and non-distended Extremity Extremity Narrative: Pictures reviewed from today with wound care nurse and swelling seems to be improved, erythema about the same, patient with much less tenderness today General Extremity: edema bilateral lower extremity Details: moderate Neuro oriented x3, moves all extremities and no focal motor deficits Neuro Narrative: Improve movement in left lower extremity today with less pain Sensorium / Orientation: awake and alert Speech: speech normal Psych affect normal Psych Narrative: Eye contact is good, patient is pleasant and interacts normally Assessment & Plan Assessment/Plan (1) Tinea pedis: QUALIFIERS: Laterality: bilateral Qualified Code(s): B35.3 - Tinea pedis (2) Debility: (3) Edema of left lower extremity: PLAN: Plan Edema/erythema left lower extremity -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 -Inflammatory markers are markedly elevated -Does not seem to be infectious -ID following and appreciate input--> vancomycin to continue for now -KUNAL with panel and ANCA's are pending -Skin biopsy pathology is pending -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--> 50 mg initiated last evening -We will plan on 1 to 2 weeks at the 50 mg dose and then start a slow taper over the course of 3 to 6 weeks -Recommend outpatient Derm follow-up after discharge Tinea pedis -Continue topical antifungals -Wound care is following Generalized weakness/debility -Continue PT/OT -Patient currently would like to go home however his debility is such that this may not be possible at discharge -Continue to monitor DM-2 -Continue home metformin -Anticipate blood sugar should be driven up with initiation of steroids -A1c is fairly well controlled at 6.1 -Continue SSI -Accu-Cheks as ordered Hypertension -Continue home lisinopril DVT prophylaxis -Continue subcu enoxaparin CODE STATUS Full code Charges/Coding Visit Charges Inpatient E&M: 31646 Subs Hosp L2
[2023-05-28 12:13] LABS: Bedside Glucose 228 mg/dL (74-106)
[2023-05-28 17:09] LABS: Bedside Glucose 204 mg/dL (74-106)
[2023-05-28 22:55] LABS: Bedside Glucose 255 mg/dL (74-106)
[2023-05-29 02:00] VITALS: BP 147/71; PULSE 68; RESP 20; TEMP 36.5; O2SAT 99
[2023-05-29] MEDS: Insulin Lispro 100 UNIT/ML INSULN.PEN SC ×3 (06:27→17:11)
[2023-05-29 06:42] LABS: Bedside Glucose 218 mg/dL (74-106)
[2023-05-29 07:14] LABS: Absolute Lymphocyte Count 1.46 X10^3/uL (0.83-4.51); Absolute Neutrophil Count 8.4 X10^3/uL (2.0-7.7); Basophil# 0.02 X10^3/uL; Basophil% 0.2 % (0-1); Eosinophil# 0.03 X10^3/uL; Eosinophils% 0.3 % (0-5); Hematocrit 34.8 % (40-54); Hemoglobin 11.7 g/dL (13.0-16.5); Lymphocyte # 1.46 X10^3/ul (0.83-4.51); Lymphocyte % 13.6 % (19-41); Mean Corp Hgb Conc 33.6 g/dL (32-36); Mean Corpuscular Hgb 28.3 pg (27.0-32.0); Mean Corpuscular Volume 84.1 fL (80-94); Monocyte# 0.69 X10^3/uL; Monocyte% 6.4 % (0-10); NRBC Flagged by Analyzer 0 % (0-5); Neutrophil # 8.36 X10^3/uL (2.7-7.7); Neutrophil % 77.6 % (47-70); Platelet Count 316 K/mm3 (150-450); RBC Distribution Width CV 13.3 % (11.6-14.6); RBC Distribution Width SD 41.2 fl (35.1-43.9); Red Blood Count 4.14 M/mm3 (4.6-6.2); White Blood Count 10.8 K/mm3 (4.4-11.0)
[2023-05-29 07:30] LABS: Anion Gap 6 (5-15); BUN 16 mg/dL (7-18); BUN/Creat Ratio 23.4 RATIO (10-20); Calcium,Total 9.2 mg/dL (8.5-10.1); Chloride 102 mmol/L (98-107); Creatinine, Serum 0.68 mg/dL (0.70-1.30); EST Glomerular Filtration Rate 120 mL/min (>60); Est Glom Filt Rate - Afr Amer 145 mL/min (>60); Estimated Creatinine Clearance 81.24 ml/min; Glucose 211 mg/dL (74-106); Potassium 3.2 mmol/L (3.5-5.1); Sodium Level 138 mmol/L (136-145)
[2023-05-29 08:02] VITALS: BP 146/68; PULSE 68; RESP 18; TEMP 36.7; O2SAT 96
[2023-05-29] MEDS: Enoxaparin 40 MG/0.4 ML Syringe SC (08:13)
[2023-05-29] MEDS: Lisinopril 20 MG Tablet PO (08:14)
[2023-05-29] MEDS: Cholecalciferol (VIT D3) 25 MCG TABLET (1,000 UNITS) PO (08:14)
[2023-05-29] MEDS: metFORMIN HCl 1,000 MG Tablet 1000 MG PO (08:16)
[2023-05-29] MEDS: predniSONE 20 MG Tablet 50 MG PO (08:16)
[2023-05-29] MEDS: amLODIPine 5 MG Tablet PO (08:20)
[2023-05-29] MEDS: Clotrimazole 1 APPLIC Tube TOPICAL ×2 (08:23→21:58)
--- NOTE | 2023-05-29 08:25 | WOUNDNOTE ---
skin photo: left lower leg
--- NOTE | 2023-05-29 08:26 | WOUNDNOTE ---
skin photo: left medial lower leg
--- NOTE | 2023-05-29 08:26 | WOUNDNOTE ---
skin photo: left lateral lower leg
--- NOTE | 2023-05-29 08:27 | WOUNDNOTE ---
In to reassess the left lower leg. removed the BRENDA wraps and dressings. there is minimal drainage noted. the redness and edema much improved. still dark discoloration noted with some blistering to the medial and lateral ankle as well as the left medial upper calf. no open areas noted to culture. still awaiting skin biopsy for possible vasculitis diagnosis. washed leg and foot with soap and water. pat dry. placed dry dressings and wrapped with kerlix. reapplied the BRENDA wraps from the base of the toes to just below the knee. pt tolerated well. denies much discomfort. will monitor.
--- NOTE | 2023-05-29 09:30 | CASEMGMT ---
Social Work SW met with pt and introduced role of SW. SW inquired about family and requested permission for physician to call family with update. Pt states he has a son in [place] but pt has not informed this son that he has been hospitalized and is refusing for any [facility] staff to make contact with son. Physician updated. NILAM Desir
--- NOTE | 2023-05-29 09:49 | PCM.PN.HOSP ---
Subjective Subjective No issues overnight. Patient only walked about 12 feet x 2 yesterday with therapy and I discussed with him the importance of him trying to walk farther. He stated they asked him if he wanted a break and he said yes. Why would I want a break. I encouraged him strongly to try to walk farther because as his functional status is at his right now discharging him home is not the safest option. We asked if we could call his son and discussed this with him and he said he does not want anybody called and his son is not aware that he is in the hospital. If he wants him to know he indicated he would call himself. I did discuss with him that his labs are still pending with regards to his vascular status in his leg and the biopsy is still pending for pathology. I am hoping to have pathology results in the next 24 to 48 hours. Objective Data Objective Data Vital Signs: Vital Signs Temp Pulse Resp BP Pulse Ox O2 Del Method 98.1 F 68 18 146/68 H 96 Room Air 05/29/23 08:02 05/29/23 08:02 05/29/23 08:02 05/29/23 08:02 05/29/23 08:02 05/29/23 08:02 Oxygen Delivery Method Room Air Weight: 101.605 kg Body Mass Index (BMI) 25.9 Intake & Output: Intake and Output for Last 24 Hours 05/27/23 05/28/23 05/29/23 23:59 23:59 23:59 Intake Total 1000 / 1000 2150 / 2150 150 / 150 Output Total 2200 / 2200 2280 / 2280 1150 / 1150 Balance -1200 / -1200 -130 / -130 -1000 / -1000 Lab / Micro Data 05/29/23 07:05 05/29/23 07:05 Labs: Laboratory Results - last 24 hr 05/28/23 11:48: POC Glucose 228 H 05/28/23 16:52: POC Glucose 204 H 05/28/23 22:30: POC Glucose 255 H 05/29/23 06:23: POC Glucose 218 H 05/29/23 07:05: WBC 10.8, RBC 4.14 L, Hgb 11.7 L, Hct 34.8 L, MCV 84.1, MCH 28.3, MCHC 33.6, RDW Std Deviation 41.2, RDW Coeff of Domo 13.3, Plt Count 316, MPV 10.0, Immature Gran % (Auto) 1.900 H, Neut % (Auto) 77.6 H, Lymph % (Auto) 13.6 L, [place] % (Auto) 6.4, Eos % (Auto) 0.3, Baso % (Auto) 0.2, Absolute Neuts (auto) 8.4 H, Absolute Lymphs (auto) 1.46, Nucleated RBC % 0, Sodium 138, Potassium 3.2 L, Chloride 102, Carbon Dioxide 30.0, Anion Gap 6, BUN 16, Creatinine 0.68 L, Estim Creat Clear Calc 81.24, Est GFR (MDRD) Af Amer 145, Est GFR (MDRD) Non-Af 120, BUN/Creatinine Ratio 23.4 H, Glucose 211 H, Calcium 9.2 Micro: Microbiology 05/23/23 08:12 Blood Culture (Wb) - Arm Right Blood Culture - Final No growth in 5 days. 05/23/23 08:00 Blood Culture (Wb) - Anticubital Right Blood Culture - Final No growth in 5 days. Rhythm Strip Rhythm Strip: Sinus Rhythm Rate: 96 Ectopy: None Physical Exam Const alert, oriented x3, no apparent distress, average body habitus and well nourished Constitutional Narrative: Older white male, sitting up in bed, watching television, appears comfortable at rest, nontoxic-appearing HEENT normocephalic, head/scalp atraumatic, moist oral mucous membranes and oropharynx normal HEENT Narrative: Mallampati is 2, dentition is poor, no thrush Resp normal respiratory effort, no retractions, no use of accessory muscles and clear to auscultation bilaterally Auscultation: Negative for rales, rhonchi or wheezes Cardio regular rate, regular rhythm, S1 normal heart sound, S2 normal heart sound, no murmurs, no rub, no gallops and no clicks GI normal to inspection, nondistended, normoactive bowel sounds, soft to palpation and non-tender Extremity Extremity Narrative: Pictures reviewed again today with wound care nurse as she had just dressed the leg prior to my arrival--> overall leg looks much less erythematous and redness seems to be retracting with normal skin being identified and swelling is improving, leg is rodding machine tender and hypersensitive to touch and it seems to be exacerbated by the compression so this was loosened, no cyanosis or clubbing Skin Skin Narrative: vincenzo on his left foot and several areas of cracked skin on the dorsum aspect of his foot as well as between the toes, skin is hypersensitive to touch Neuro oriented x3, moves all extremities and no focal motor deficits Neuro Narrative: Patient is somewhat forgetful and I have noticed this since he came to the hospital I do wonder if he has some mild cognitive impairment however he is refused to allow us to talk to his son and he is alert and oriented x 3. 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 potassium given -Repeat lab in a.m. Tinea pedis -Continue topical antifungals -Wound care is following Generalized weakness/debility -Continue PT/OT -Patient currently would like to go home however his debility is such that this may not be possible at discharge -Patient's effort has also been lacking and I discussed this with him today and he indicated he would try to walk further as I discussed with him he may need to go to a care home and he absolutely does not want to do this -Yesterday only ambulated 12 feet x 2 and I think if he goes home he is at high risk for readmission -Continue to monitor DM-2 -Continue home metformin -Anticipate blood sugar should be driven up with initiation of steroids--> a.m. blood sugar was 211 -A1c is fairly well controlled at 6.1 -Continue SSI but increase dosing to high-dose scale for better glycemic control with steroid use -Accu-Cheks as ordered Hypertension -Continue home lisinopril DVT prophylaxis -Continue subcu enoxaparin CODE STATUS Full code Charges/Coding Visit Charges Inpatient E&M: 68429 Subs Hosp L2
[2023-05-29] MEDS: Potassium Chloride Oral Tablet 20 MEQ 60 MEQ PO (10:32)
[2023-05-29] MEDS: Vancomycin IV 1,000 MG/200 ML BAG 200 MG IV (10:35)
[2023-05-29] MEDS: 0.9% Saline Lock 10 ML Syringe IV ×2 (10:38→21:59)
[2023-05-29] MEDS: Ibuprofen 600 MG Tablet PO (11:21)
[2023-05-29] MEDS: oxyCODONE 5 MG Tablet PO (11:22)
[2023-05-29 13:08] LABS: Anti-Centromere B Ab <0.2 AI (0.0-0.9); Anti-Chromatin <0.2 AI (0.0-0.9); Anti-Jo <0.2 AI (0.0-0.9); Anti-Scleroderma-70 AB <0.2 AI (0.0-0.9); Anti-dsDNA Ab 5 IU/mL (0-9); Cytoplasmic Ab (C-ANCA) <1:20 titer (Neg:<1:20); Perinuclear Ab (P-ANCA) <1:20 titer (Neg:<1:20); RNP Ab <0.2 AI (0.0-0.9); SJOGREN'S Anti-SS-A test < 0.2 AI (0.0-0.9); SJOGREN'S Anti-SS-B test < 0.2 AI (0.0-0.9); Smith Ab <0.2 AI (0.0-0.9)
[2023-05-29] MEDS: Acetaminophen 500 MG Tablet 1000 MG PO ×2 (13:32→21:57)
[2023-05-29 14:00] VITALS: BP 136/62; PULSE 71; RESP 16; TEMP 36.7; O2SAT 95
[2023-05-29 15:29] LABS: Bedside Glucose 204 mg/dL (74-106)
[2023-05-29 17:35] LABS: Bedside Glucose 288 mg/dL (74-106)
[2023-05-29 19:25] VITALS: BP 137/71; PULSE 71; RESP 16; TEMP 36.3; O2SAT 97
[2023-05-29 22:23] LABS: Bedside Glucose 269 mg/dL (74-106)
[2023-05-30 02:00] VITALS: BP 137/68; PULSE 64; RESP 16; TEMP 36.3; O2SAT 96
[2023-05-30] MEDS: Acetaminophen 500 MG Tablet 1000 MG PO ×2 (06:04→14:03)
[2023-05-30] MEDS: Insulin Lispro 100 UNIT/ML INSULN.PEN SC ×2 (06:07→11:46)
[2023-05-30 06:24] LABS: Absolute Lymphocyte Count 1.62 X10^3/uL (0.83-4.51); Basophil# 0.02 X10^3/uL; Basophil% 0.2 % (0-1); Eosinophil# 0.02 X10^3/uL; Eosinophils% 0.2 % (0-5); Hemoglobin 11.7 g/dL (13.0-16.5); Lymphocyte # 1.62 X10^3/ul (0.83-4.51); Lymphocyte % 17.1 % (19-41); Mean Corp Hgb Conc 33.4 g/dL (32-36); Mean Corpuscular Hgb 28.6 pg (27.0-32.0); Mean Corpuscular Volume 85.6 fL (80-94); Mean Platelet Vol. 9.8 fl (6.2-12.0); Monocyte# 0.63 X10^3/uL; Monocyte% 6.6 % (0-10); NRBC Flagged by Analyzer 0 % (0-5); Neutrophil # 6.99 X10^3/uL (2.7-7.7); Neutrophil % 73.8 % (47-70); Platelet Count 358 K/mm3 (150-450); RBC Distribution Width CV 13.5 % (11.6-14.6); RBC Distribution Width SD 41.8 fl (35.1-43.9); Red Blood Count 4.09 M/mm3 (4.6-6.2); White Blood Count 9.5 K/mm3 (4.4-11.0)
[2023-05-30 06:32] LABS: Bedside Glucose 178 mg/dL (74-106)
[2023-05-30 07:05] LABS: ALB/GLOB Ratio 0.5 RATIO (0.9-2.4); AST(SGOT) 19 U/L (15-37); Alanine Aminotransfer ALT/SGPT 39 U/L (16-61); Albumin, Serum 2.1 g/dL (3.2-5.0); Alkaline Phosphatase 70 U/L (45-117); Anion Gap 4 (5-15); BUN 23 mg/dL (7-18); BUN/Creat Ratio 28.9 RATIO (10-20); Calcium,Total 9.3 mg/dL (8.5-10.1); Chloride 101 mmol/L (98-107); EST Glomerular Filtration Rate 100 mL/min (>60); Est Glom Filt Rate - Afr Amer 121 mL/min (>60); Estimated Creatinine Clearance 101.56 ml/min; Globulin 4.1 g/dL (2.2-4.2); Glucose 193 mg/dL (74-106); Potassium 3.8 mmol/L (3.5-5.1); Protein, Total 6.2 g/dL (6.4-8.2); Sodium Level 137 mmol/L (136-145)
[2023-05-30 08:23] VITALS: BP 146/76; PULSE 63; RESP 18; TEMP 36.3; O2SAT 98
[2023-05-30] MEDS: predniSONE 20 MG Tablet 50 MG PO (08:34)
[2023-05-30] MEDS: Lisinopril 20 MG Tablet PO (08:34)
[2023-05-30] MEDS: Enoxaparin 40 MG/0.4 ML Syringe SC (08:34)
--- NOTE | 2023-05-30 08:34 | WOUNDNOTE ---
In to reassess the left lower leg and foot. removed the dressing and BRENDA wrap. no drainage noted. the redness is nearly resolved. the skin is a very deep purple color. patient denies pain. states he had walked a little more in the halls yesterday. washed leg and foot with soap and water. pat dry. applied the ordered antifungal cream to the left foot. wrapped leg with dry dressings and reapplied the BRENDA wrap from the base of the toes to just below the knee. pt tolerated well. pt hoping to be discharged home today.
[2023-05-30] MEDS: Cholecalciferol (VIT D3) 25 MCG TABLET (1,000 UNITS) PO (08:35)
[2023-05-30] MEDS: amLODIPine 5 MG Tablet PO (08:35)
[2023-05-30] MEDS: Clotrimazole 1 APPLIC Tube TOPICAL (08:35)
[2023-05-30 09:15] VITALS: O2SAT 96
--- NOTE | 2023-05-30 09:46 | NURSING ---
talked to pathology regarding punch biopsy. aware per pathology that patient is a complex case and they are sending out the specimen for tests not available at [facility]
--- NOTE | 2023-05-30 09:55 | CASEMGMT ---
Addendum entered by Ramos Polanco 05/30/23 14:57: 1330: TERRENCE STEVE informed pt will need a ride home. TERRENCE STEVE to room. Pt states he is not sure if his friend can take him home yet, as he has not called her to inquire. He gave permission for TERRENCE STEVE to call his friend, Charlotte. Call placed to Charlotte who states they have a milk wagon driver arranged tomorrow to come see pt, but she does not know if a milk wagon driver can be arranged this late in the day today and mentioned how she thought pt may need to stay until tomorrow if they are unable to find a milk wagon driver. Call placed to [facility] van transp. They have a milk wagon driver available to pick pt up from [facility] and take him to his friend's home beside [facility], where pt states he will be going to today. Pt and friend, Charlotte, made aware. Charlotte had also stated they have a walker available for pt to use if he needs one when he gets to their home. Pt made aware. Pt would like to have his new meds delivered to his room prior to discharge. Call to [facility] retail pharmacy and they were made aware. Pt denies having other discharge needs. Artur HERZOG RN, CM Original Note: TERRENCE STEVE NOTE: Per Dr Cedillo, pt may be ready for discharge today. TERRENCE STEVE to room. Discussed discharge planning. Pt has been using a walker while @ [facility]. Pt states he has a walker @ his home in [place] and he does not want to get another one. He states he has a cane @ his friends' home in [place], [place]. He states he plans to go to this friend's home @ discharge and will get his cane and other belongings from there. He again states he does not want a walker to have for his travel back to [place], stating his cane will be sufficient and he does not want to end up having 2 walkers. He is not sure yet if he will stay w/his friend for awhile before returning to his home in [place] or not. Discussed wound care/dressing changes. Pt states he will not do any dressing on his legs when he discharges, even if he is shown how/what to do. He denies having any discharge needs or concerns. Artur HERZOG RN, CM
[2023-05-30 12:06] LABS: Bedside Glucose 224 mg/dL (74-106)
--- NOTE | 2023-05-30 12:48 | DS.PCM_ITS ---
Providers Date of Admission: 05/23/23 Date of Discharge: 05/30/23 Primary Care Physician: [facility] Consultations 05/27/23 09:24 Consult: Infectious Disease Routine Consulting Provider: Gerson Aleman Reason for Consult: LLE Cellulitis EMERGENT Consult: No Notified: Yes Date Notified: 05/27/23 Time Notified: 09:33 Method of Notification: Text Consult: Onc/Wound/fat purification worker Routine Comment: 05/27/23 14:39 Consult: General Surgery Routine Consulting Provider: Eben Tobar Reason for Consult: LLE skin bx EMERGENT Consult: No Notified: Yes Date Notified: 05/27/23 Time Notified: 14:40 Method of Notification: Verbal Reason For Visit: CELLULITIS LEFT LOWER EXTREMITY, DISORENTATION Diagnosis Discharge Diagnosis (1) Tinea pedis: Status: Acute Code(s): B35.3 - Tinea pedis Qualifiers: Laterality: bilateral Qualified Code(s): B35.3 - Tinea pedis (2) Debility: Status: Acute Code(s): R53.81 - Other malaise (3) Edema of left lower extremity: Status: Acute Code(s): R60.0 - Localized edema (4) Hypokalemia: Status: Acute Code(s): E87.6 - Hypokalemia (5) 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: Status: Acute Code(s): I77.6 - Arteritis, unspecified Medications at Discharge Home Medications cholecalciferol (vitamin D3) 25 mcg (1,000 unit) tablet 25 mcg PO DAILY SUPPLEMENT 05/23/23 lisinopril 40 mg tablet 20 mg PO DAILY BLOOD PRESSURE 05/23/23 metformin 500 mg tablet 1,000 mg PO DAILY DIABETES 05/23/23 psyllium husk 0.52 gram capsule (Daily Fiber) 0.52 g PO DAILY PRN CONSTIPATION 05/23/23 riboflavin (vitamin B2) 100 mg tablet (Vitamin B-2) 100 mg PO DAILY SUPPLEMENT 05/23/23 amlodipine 5 mg tablet 5 mg PO DAILY #30 tabs 05/30/23 prednisone 10 mg tablet 10 mg PO DAILY #90 tabs 05/30/23 Hospital Course Operations - (Punch biopsy left lower extremity) Procedures - (CT left lower extremity/left lower extremity Dopplers) Summary of Care Provided Minutes Spent on Discharge: 38 Hospital Course: Mr. Thomason is a 77-year-old white male who presented to the emergency department at [facility] on 05/23/2023 with weakness and left lower extremity redness. The patient lives in [place] and was visiting locally for a leather show. He has been staying with friends and progressively was getting weaker requiring assistance to even get out of bed. They were concerned and sent the patient to the emergency department. On presentation he was afebrile with a heart rate of 88, blood pressure 149/63, respiratory rate was 18 oxygen saturations were 94% on room air. His CBC showed a leukocytosis with a white count of 14.9 and mild thrombocytopenia with a platelet count of 145,000. His chemistry panel showed mild hyponatremia with a sodium of 135, hypokalemia with a potassium of 3.2 and hyperglycemia with a blood sugar of 114. The patient is known diabetic. Patient is extremely poor historian and was not able to relate how long this has been going on or when his leg redness started. He did indicate he had bilateral lower extremity swelling and had followed with his primary care physician and nothing was done about it. He would not allow us to contact his son with whom he lives and could not give us the name of his primary care physician. He was admitted to the medical floor after being given Unasyn and Zosyn in the emergency department following blood pressure culture draws. In the first 24 hours it was felt that his leg looked improved on vancomycin alone however at 48 hours after admission his leg was worsening and he was not able to ambulate with therapy at all due to pain. The erythema had intensified and therefore a CT of his leg was performed that showed diffuse induration of the subcutaneous fat with skin thickening and low-density edema around the periphery of the calf muscle consistent with diffuse cellulitis and no organized abscess. Zosyn was added to vancomycin that time and it was maintained for the next 48 hours. His leg progressively looked worse and Dopplers were obtained which were negative for DVT. We obtained a sed rate and CRP both of which were markedly elevated showing a CRP of 177 and ID agreed that this was likely not infectious and more of a cellulitis. General surgery was consulted and a punch biopsy of the lower extremity was obtained. After punch biopsy was attained he was started on steroids 50 mg daily for treatment of suspected vasculitis. Autoimmune panel was performed including ANCA's and KUNAL. The entire panel was unremarkable. He slowly improved clinically subjectively and objectively after initiation of steroids. The swelling and erythema had reduced and his pain improved. Final pathology was still pending at discharge however per discussion with pathology they felt that this was most consistent with a vasculitis and ongoing stains were pending for final results. He will continue prednisone 50 mg daily for the next 10 days to complete a 2-week course and then slow wean moreno l be pursued with 40 mg x 5 days, 30 mg x 5 days, 20 mg x 5 days, and 10 mg x 5 days. I have strongly encouraged him to follow-up with his primary care physician as soon as possible after returning to [place] for reevaluation. They will need to obtain his records from here to drive further care. His weakness did improve after steroids were initiated and he was able to ambulate with a walker. He declined need for a walker at the time of discharge despite having to drive back to [place] and stated he had a walker at home and that would be sufficient. He felt he could use his cane until that point in time. Again he would not allow us to call his son and told us that if he wanted to call he would call. We advise dressing change at the time of discharge however he did tell case management that he was not going to follow-up with any dressing changes. We are hopeful that he would continue steroids and he was instructed on the importance of continuing steroids at the time of discharge. He was discharged to home in stable condition on 05/30/2023. Prescription was faxed to the pharmacy at the hospital and was filled prior to discharge. His blood pressure was also noted to be elevated during his hospitalization he was started on amlodipine 5 mg daily. Prescription was sent for this as well. He will likely need either rheumatologic or dermatological follow-up after discharge and this was discussed with him as well. The patient was advised that his blood sugars would likely be elevated while he was on steroids but should improve as steroids taper. Discharge diagnoses: Right lower extremity vasculitis-type unknown Tinea pedis, generalized weakness Debility DM-2 Hypertension Physical Exam Const alert, oriented x3, no apparent distress, average body habitus and well nou rished Constitutional Narrative: Older white male, sitting up in bed, watching television, appears comfortable at rest, nontoxic-appearing General Appearance: cooperative, comfortable, well kempt and well developed Orientation / Consciousness: awake, oriented to person, oriented to place and oriented to time Exam Limitations: no limitations HEENT normocephalic, head/scalp atraumatic, moist oral mucous membranes and oropharynx normal HEENT Narrative: Mild to moderate hearing loss, dentition is poor, Mallampati is 2 Eyes PERRL, EOMs intact bilaterally and conjunctivae normal Resp normal respiratory effort, no retractions, no use of accessory muscles and clear to auscultation bilaterally Auscultation: Negative for rales, rhonchi or wheezes Cardio regular rate, regular rhythm, S1 normal heart sound, S2 normal heart sound, no murmurs, no rub, no gallops and no clicks GI normal to inspection, nondistended, normoactive bowel sounds, soft to palpation and non-tender Extremity Extremity Narrative: Left lower remedy looks much better with decreased swelling, pain, and erythema, still purple centrally but the erythematous areas are almost resolved and the area is much less tender General Extremity: edema bilateral lower extremity Details: moderate Skin Skin Narrative: Tinea pedis on his left foot and several areas of cracked skin on the dorsum aspect of his foot as well as between the toes, leg is much less hypersensitive Neuro oriented x3, CN's II-XII intact bilaterally, moves all extremities and no focal motor deficits Sensorium / Orientation: awake, alert, oriented to person, oriented to place and oriented to time Speech: speech normal Psych affect normal Psych Narrative: Eye contact is good, patient is pleasant and interacts normally Weight / BMI Weight Weight: 101.605 kg Body Mass Index (BMI) 25.9 ABG / Lab / Microbiology Data 05/30/23 05:35 05/30/23 05:35 Laboratory: Laboratory Results - last 24 hr 05/27/23 15:20: c-ANCA Antibody <1:20, Atypical p-ANCA <1:20, p-ANCA Antibody <1:20, DAV-1 Antibody <0.2, SS-A/Ro IgG Antibody < 0.2, SS-B/La IgG Antibody < 0.2, Sm ([place]on) Antibody <0.2, CHEMICAL SALES REPRESENTATIVE Antibody <0.2, Scl-70 Scleroderma Ab <0.2, Double Strand DNA Ab 5, Centromere B Antibody <0.2 05/29/23 11:16: POC Glucose 204 H 05/29/23 17:10: POC Glucose 288 H 05/29/23 22:01: POC Glucose 269 H 05/30/23 05:35: WBC 9.5, RBC 4.09 L, Hgb 11.7 L, Hct 35.0 L, MCV 85.6, MCH 28.6, MCHC 33.4, RDW Std Deviation 41.8, RDW Coeff of Domo 13.5, Plt Count 358, MPV 9.8, Immature Gran % (Auto) 2.100 H, Neut % (Auto) 73.8 H, Lymph % (Auto) 17.1 L , Mason % (Auto) 6.6, Eos % (Auto) 0.2, Baso % (Auto) 0.2, Absolute Neuts (auto) 7.0, Absolute Lymphs (auto) 1.62, Nucleated RBC % 0, Sodium 137, Potassium 3.8, Chloride 101, Carbon Dioxide 32.0, Anion Gap 4 L, BUN 23 H, Creatinine 0.80, Estim Creat Clear Calc 101.56, Est GFR (MDRD) Af Amer 121, Est GFR (MDRD) Non-Af 100, BUN/Creatinine Ratio 28.9 H, Glucose 193 H, Calcium 9.3, Total Bilirubin 0.40, AST 19, ALT 39, Alkaline Phosphatase 70, C-React Prot Ext Range 51.00 H, Total Protein 6.2 L, Albumin 2.1 L, Globulin 4.1, Albumin/Globulin Ratio 0.5 L 05/30/23 06:07: POC Glucose 178 H 05/30/23 11:43: POC Glucose 224 H Microbiology: Microbiology 05/23/23 08:12 Blood Culture (Wb) - Arm Right Blood Culture - Final No growth in 5 days. 05/23/23 08:00 Blood Culture (Wb) - Anticubital Right Blood Culture - Final No growth in 5 days. Meaningful Use Info Meaningful Use Diagnoses (Choose all that apply): None applicable Discharge Plan Admission Admit Date/Time: 05/23/23 11:57 Primary Reason for Your Visit: Weakness/left lower extremity pain, swelling, redness Attending Provider: Radha Cedillo Primary Care Provider: [facility] Consulting Providers: George Stone; Gerson Aleman; Eben Tobar Instructions Additional Instructions / Restrictions: Please take this to your primary care physician's appointment for follow-up 1. Please call your primary care physician and get a follow-up either at the end of this week or early next week for reevaluation and they will need to request records from this hospitalization 2. Please wash your leg and foot daily with soap and water and pat dry keep leg wrapped with dressings and reapply Mitchell bandage from base of toes to just below the knee loosely 3. While driving back to [place] please get out of the car every 2 hours to walk around and move a bit to avoid the development of blood clots in your legs 4. Please complete the prednisone as instructed. If you do not your leg may worsen again. 5. Stitches from biopsy and left lower extremity will need removed on 06/06/2023 Discharge Orders/Prescriptions Prescriptions: New amlodipine 5 mg Tablet 5 mg PO DAILY Qty: 30 0RF prednisone 10 mg tablet 10 mg PO DAILY Qty: 90 0RF Rx Instructions: 5 tablets x 10 days, 4 tablets x 5 days, 3 tablets x 5 days, 2 tablets x 5 days, 1 tablet x 5 days Continued metformin 500 mg tablet 1,000 mg PO DAILY lisinopril 40 mg tablet 20 mg PO DAILY psyllium husk [Daily Fiber] 0.52 gram capsule 0.52 g PO DAILY PRN (Reason: CONSTIPATION) riboflavin (vitamin B2) [Vitamin B-2] 100 mg tablet 100 mg PO DAILY cholecalciferol (vitamin D3) 25 mcg (1,000 unit) tablet 25 mcg PO DAILY Referrals / Follow [facility] [Primary [facility] Provider] - Within 1 Week (These call and make an appointment as soon as possible to be seen either late this week or early next week) Disposition Disposition (needs filled in before D/C Order can be placed): Home, Self Care Charges/Coding Visit Charges Inpatient E&M: 14485 Disch Hosp >30min
[2023-05-30 14:00] VITALS: BP 133/78; PULSE 80; RESP 18; TEMP 36.6; O2SAT 95
[2023-05-31 07:47] LABS: Bedside Glucose 143 mg/dL (74-106)
== END 2023-05-30 16:05 | disposition home or self-care (01) | DRG 546 ==
LOC: ED 09:44 → MS3 12:18
PROVIDERS: Family Medicine; Emergency Provider Emergency Medicine; Visit Provider Internal Medicine
DX: I77.6 Arteritis, unspecified (principal); E87.1 Hypo-osmolality and hyponatremia; L03.116 Cellulitis of left lower limb; D69.6 Thrombocytopenia, unspecified; B35.3 Tinea pedis; E11.65 Type 2 diabetes mellitus with hyperglycemia; Z79.4 Long term (current) use of insulin; I10 Essential (primary) hypertension; E87.6 Hypokalemia; G31.84 Mild cognitive impairment of uncertain or unknown etiology; R60.0 Localized edema; Z79.84 Long term (current) use of oral hypoglycemic drugs; Z87.891 Personal history of nicotine dependence
CPT/HCPCS: 36415; 73701; 80048; 80053; 80202; 81001; 82962; 83036; 83605; 83735; 84100; 84443; 85025; 85027; 85610; 85652; 85730; 86140; 86225; 86235; 86256; 87040; 88305; 88312; 88325; 93005; 93971; 97110; 97162; 97166; 97530; 97535; 97803; 99285; J7030; J7040; Q9967; A4216; J0295